=== PATIENT | male | born 1945 | race Caucasian/White ===

== ENCOUNTER 2025-03-25 12:58 | Inpatient (IN) | payer MEDICARE, SELFPAY ==
[2025-03-25] VITALS (13 sets, daily range): BP systolic 93–125; BP diastolic 51–92; PULSE 79–120; RESP 16–28; TEMP 36.1–36.4; O2SAT 90–95; BMI 21.0
[2025-03-25] MEDS: SODIUM CHLORIDE 0.9% 1,000 ML 1000 ML IV (13:34)
--- NOTE | 2025-03-25 13:40 | ED_ITS ---
HPI - Fall General Chief Complaint: Fall Stated Complaint: fell and hurt side x2 days Time Seen by Provider: 03/25/25 13:16 Source: patient and other Mode of arrival: Wheelchair History of Present Illness HPI Narrative: Patient is a an 80-year-old male presenting today after a fall a couple days ago landing on his left side. He has been complaining of some left-sided rib pain. It sounds as though he is not always compliant with his medications but is supposed to take Pradaxa for chronic atrial fibrillation. There are reports per family that he was not feeling very well a couple of days prior maybe even having some low right lower abdominal pain. He is found to be hypotensive with a blood pressure in the 90s. He is hard of hearing he denies any other injury really complaining of pain on the left side of his ribs. May have had a low- grade fever but not documented. Related Data Allergies Allergy/AdvReac Type Severity Reaction Status Date / Time No Known Drug Allergies Allergy Verified 03/25/25 13:03 Exam Initial Vital Signs Initial Vital Signs: Vital Signs Temperature 97.0 F L 03/25/25 13:03 Pulse Rate 79 03/25/25 13:03 Respiratory Rate 18 03/25/25 13:03 Blood Pressure 93/51 L 03/25/25 13:03 Pulse Oximetry 95 03/25/25 13:03 Oxygen Delivery Method Room Air 03/25/25 13:03 GENERAL: Alert week hard of hearing 80-year-old male HEENT: Head atraumatic,EOMI, pupils reactive, face symmetric, moist mucous membranes CARDIOVASCULAR: Regular rate and rhythm without murmurs, rubs or gallops. RESPIRATORY: Decreased breath sounds bilaterally Right rib tenderness no contusion no paradoxical move ABDOMEN: Soft, nontender. Normoactive bowel sounds all 4 quadrants. No guarding or rebound. EXTREMITIES: Normal range of motion, no clubbing or edema. Neurovascularly intact NEUROLOGICAL: Awake alert oriented SKIN: Warm, dry, no laceration, no petechiae, no rashes or lesions. Course Orders Ordered: ED Orders 03/25/25 13:16 EKG-12 Lead Stat RT Consult Eval and Treat NOW 03/25/25 13:30 Blood Culture Stat Comprehensive Metabolic Panel Stat Lactate (Lactic Acid) Stat Lipase Stat PTT Partial Thromboplastin Enmanuel Stat Procalcitonin Stat Prothrombin Time INR Stat 03/25/25 13:45 CT cervical spine wo con Stat CT chest abd pel w con Stat CT head/brain wo con Stat 03/25/25 14:05 Complete Blood Count AUTO DIFF Stat 03/25/25 14:25 Sputum Culture Stat 03/25/25 15:05 Urinalysis and Microscopic Stat 03/25/25 16:28 Consult to Discharge Planning Routine Consult to Occupational Therapy Evaluate & Treat Consult to Physical Therapy Evaluate & Treat 03/25/25 16:46 BMP [Basic Metabolic Panel] Stat 03/25/25 20:30 Basic Metabolic Panel Q4H 03/26/25 00:30 Basic Metabolic Panel Q4H 03/26/25 05:00 Complete Blood Count AUTO DIFF DAILY Comprehensive Metabolic Panel DAILY 03/27/25 05:00 Complete Blood Count AUTO DIFF DAILY Comprehensive Metabolic Panel DAILY 03/28/25 05:00 Complete Blood Count AUTO DIFF DAILY Acetaminophen (Acetaminophen 325 Mg Tablet) 650 mg PO Q6H PRN PRN Reason: Fever/Mild Pain (1-3) Enoxaparin Sodium (Enoxaparin 40 Mg/0.4 Ml Syringe) 40 mg SUBCUT DAILY DENIA Sodium Chloride (Normal Saline 0.9%) 1,000 mls @ 84 mls/hr IV CONT DENIA Last Admin: 03/25/25 16:04 Dose: 84 mls/hr Documented By: RLC Sodium Chloride (Normal Saline 0.9%) 1,000 mls @ 100 mls/hr IV CONT DENIA Piperacillin Sod/Tazobactam (Sod 3.375 gm/ Sodium Chloride) 100 mls @ 25 mls/hr IV Q8H DENIA Lorazepam (Lorazepam 2 Mg/Ml Inj) 0 mg IV CIWAPRN PRN; Protocol PRN Reason: Alcohol Withdrawal Lorazepam (Lorazepam 1 Mg Tablet) 0 mg PO CIWAPRN PRN; Protocol PRN Reason: Alcohol Withdrawal Multivitamins (Multivitamin 1 Tablet) 1 tab PO DAILY DENIA Naloxone HCl (Naloxone 0.4 Mg/Ml Vial) 0.2 mg IV Q2MIN PRN PRN Reason: Opiate Reversal Ondansetron HCl (Ondansetron 4 Mg/2 Ml Inj) 4 mg IV NOW PRN PRN Reason: Nausea And Vomiting Ondansetron HCl (Ondansetron 4 Mg Odt) 4 mg PO NOW PRN PRN Reason: Nausea And Vomiting Discontinued Medications Sodium Chloride (Normal Saline 0.9%) 1,000 mls @ 1,000 mls/hr IV BOLUS ONE Stop: 03/25/25 14:15 Last Infusion: 03/25/25 14:49 Dose: Infused Documented By: MILA(2) Admin: 03/25/25 13:34 Dose: 1,000 mls/hr Documented By: MILA(2) Piperacillin Sod/Tazobactam (Sod 4.5 gm/ Sodium Chloride) 100 mls @ 200 mls/hr IV NOW ONE Stop: 03/25/25 14:50 Last Infusion: 03/25/25 15:51 Dose: Infused Documented By: Admin: 03/25/25 15:11 Dose: 200 mls/hr Documented By: MILA Vital Signs Vital signs: Vital Signs - 8 hr 03/25/25 13:03 03/25/25 14:47 03/25/25 15:01 Temperature 97.0 F L Pulse Rate 79 85 92 H Respiratory Rate 18 20 20 Blood Pressure 93/51 L 115/78 Pulse Oximetry 95 94 92 Oxygen Delivery Method Room Air Room Air 03/25/25 15:02 03/25/25 15:02 03/25/25 15:30 Temperature Pulse Rate 102 H 107 H Respiratory Rate 19 24 Blood Pressure 122/78 Pulse Oximetry 94 92 Oxygen Delivery Method 03/25/25 16:00 03/25/25 16:00 03/25/25 16:28 Temperature Pulse Rate 113 H 109 H Respiratory Rate 17 23 Blood Pressure 125/69 Pulse Oximetry 92 92 Oxygen Delivery Method 03/25/25 16:28 03/25/25 16:30 Temperature Pulse Rate 120 H Respiratory Rate 16 Blood Pressure 125/76 Pulse Oximetry 92 Oxygen Delivery Method MDM - Fall Lab Data 03/25/25 14:05 03/25/25 16:46 Labs: Lab Results 03/25/25 03/25/25 Range/Units 13:30 14:05 WBC 23.4 H (4.5-11.0) X10^3/uL RBC 4.37 L (4.5-5.9) X10^6/uL Hgb 13.3 L (13.5-17.5) g/dL Hct 39.3 L (41-53) % MCV 89.9 (80-100) fL MCH 30.3 (26-34) PG MCHC 33.7 (30-36) % RDW 14.7 (11.6-14.8) % Plt Count 265 (150-400) X10^3/uL Neut % (Auto) 89.5 H (50-75) % Lymph % (Auto) 3.3 L (25-40) % [place] % (Auto) 6.6 (3-14) % Eos % (Auto) 0.0 L (2-4) % Baso % (Auto) 0.6 (0-2) % Neut # (Auto) 94436 H (0720-8807) /uL Lymph # (Auto) 800 L (1740-1494) /uL [place] # (Auto) 1500 H (0-900) /uL Eos # (Auto) 0 (0-450) /uL Baso # (Auto) 100 (0-100) /uL RBC Morphology Normal morphology PT 16.9 H (9.4-12.5) SECONDS INR 1.5 H (0.9-1.3) APTT 51 H (25.1-36.5) SECONDS Sodium 117 L* (137-145) mmol/L Potassium 5.6 H (3.4-5.1) mmol/L Chloride 87 L (98-107) mmol/L Carbon Dioxide 20 L (22-32) mmol/L BUN 20 (9-20) mg/dL Creatinine 0.75 (0.66-1.25) mg/dL Estimated GFR > 60 (>60) mL/min BUN/Creatinine Ratio 26.7 H (6-22) Glucose 107 H (70-99) mg/dL Lactate 2.6 H (0.7-2.1) mmol/L Calcium 9.1 (8.4-10.2) mg/dL Total Bilirubin 1.7 H (0.2-1.3) mg/dL AST 61 H (17-59) IU/L ALT 165 H (<50) IU/L Alkaline Phosphatase 89 (38-126) U/L Total Protein 7.5 (6.3-8.2) g/dL Albumin 4.0 (3.5-5.0) g/dL Globulin 3.5 (1.7-4.1) g/dL Albumin/Globulin Ratio 1.1 (1.0-2.8) Lipase 15 L (23-300) U/L Procalcitonin 5.60 H (<0.5) ng/mL Imaging Data CT scan - head: Radiologist's Impression: PROCEDURE: CT HEAD/BRAIN WO CON INDICATIONS: fall 2 days ago on pradaxa TECHNIQUE: Noncontrast 4.5 mm thick angled axial sections acquired from the foramen magnum to the vertex, with coronal and sagittal reformats. For radiation dose reduction, the following was used: automated exposure control, adjustment of mA and/or kV according to patient size. COMPARISON: None. FINDINGS: Image quality: Diagnostic. CSF spaces: Basal cisterns are patent. No extra-axial fluid collections. The ventricles are symmetric in size and shape. Brain: No intracranial bleeds or mass effect. There is cerebral volume loss, with resultant ventricular and sulcal prominence. There are periventricular and deep white matter chronic small vessel ischemic changes. There is intracranial internal carotid artery atherosclerosis. Skull and face: Calvarium and visualized facial bones appear intact, without suspicious lesions. Sinuses: Visualized sinuses and mastoids are clear. IMPRESSION: No acute intracranial pathology. Dictated by: Carroll Herrera M.D. on 03/25/2025 at 14:32 CT - cervical spine: Radiologist's Impression: PROCEDURE: CT CERVICAL SPINE WO CON INDICATIONS: fall TECHNIQUE: Noncontrast 3 mm thick sections acquired from the skull base to the T4 level. Sagittal and coronal reformats were then constructed. For radiation dose reduction, the following was used: automated exposure control, adjustment of mA and/or kV according to patient size. COMPARISON: None. FINDINGS: Image quality: Excellent. Bones: No fractures or dislocations. Visualized superior ribs are intact. Multilevel degenerative changes of the cervical spine from C2-3 through C6-7 with degenerative disc osteophyte complexes. Soft tissues: Prevertebral soft tissues are normal in thickness. No paravertebral hematomas. The pulmonary apices are better seen on dedicated same-day CT chest. IMPRESSION: No displaced fracture or traumatic subluxation. Dictated by: Carroll Herrera M.D. on 03/25/2025 at 14:45 Approved by: Carroll Herrera M.D. on 03/25/2025 at 14:51 CT scan - abdomen/pelvis: Radiologist's Impression: PROCEDURE: CT CHEST ABD PEL W CON INDICATIONS: fall left rib pain on pradaxa hypotensive TECHNIQUE: After the administration of intravenous contrast, 5 mm thick sections acquired from the lung apices to the symphysis. 5 mm coronal and sagittal reformats were performed, with additional 7 mm MIP reformats through the lungs. For radiation dose reduction, the following was used: automated exposure control, adjustment of mA and/or kV according to patient size. COMPARISON: None. FINDINGS: Image quality: Excellent. CHEST: Lower Neck: No enlarged lymph nodes. Thyroid: No thyroid nodules which require sonographic follow up, per consensus guidelines. Axillae: No enlarged lymph nodes. Chest Wall: Unremarkable. Lungs and Pleura: No pneumothorax. Right moderate and small left pleural effusions. Central lung predominant ground-glass opacities which extends to the bilateral anterior upper lobes. Left lower lobe 9 x 9 cm nodule. . Heart: The heart is prominent in size with biatrial enlargement. Triple-vessel coronary artery calcifications. Thoracic Vessels: The thoracic aorta is normal in size. No central filling defect within the pulmonary trunk or central pulmonary arteries. Mediastinum and Alicia: Enlarged AP window 1.2 x 1 cm node and pre-vascular 1.5 x 1 cm node. Esophagus: No wall thickening. No hiatal hernia. ABDOMEN: Liver: Hyperenhancing exophytic segment 7 6.4 x 5.2 x 8.2 cm mass (coronal series 3, image 60; axial series 2, image 114). Cirrhotic liver morphology. Gallbladder: Circumferential gallbladder wall thickening with mild adjacent edema. Punctate stones within the gallbladder fundus. Biliary ducts: No biliary dilation. Pancreas: No ductal dilation. Spleen: Size is within normal limits. Adrenal Glands: No adrenal nodules. Kidneys and Ureters: No hydronephrosis. No solid mass. No complex renal cystic lesion which requires follow up. Stomach and Bowel: Normal colonic caliber, without significant wall thickening. Normal appendix. Diverticulosis without diverticulitis. Peritoneum: No abnormal intraperitoneal fluid. No free air. Ventral Wall: No significant ventral hernia. Abdominal Nodes: Enlarged right retrocrural 4.4 x 2.3 cm node (05/1112). Vessels: Aorta and inferior vena cava are normal in size. PELVIS: Pelvic Organs: Unremarkable. Bladder: No bladder wall thickening, accounting for underdistention. Pelvic Nodes: No enlarged lymph nodes. Miscellaneous: No inguinal hernias are seen. Bones: No aggressive osseous abnormality. No displaced rib fracture. Findings of DISH. Multilevel degenerative changes in the lumbar spine. No compression deformity. IMPRESSION: 1. 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 2. Enlarged right retrocrural 4.4 cm node versus silvia conglomerate. 3. Left lower lobe 9 mm nodule, which is too small for percutaneous sampling but is suspicious for possible metastatic disease. 4. Multifocal ground-glass opacities throughout both lungs concerning for multifocal pneumonia. 5. Enlarged left pre-vascular and AP window nodes may be reactive in the setting of multifocal pneumonia. 6. Right moderate and small left pleural effusions. 7. No displaced rib fracture or pneumothorax. Dictated by: Carroll Herrera M.D. on 03/25/2025 at 14:34 ECG Data Attestation: I personally reviewed and interpreted this ECG as follows: Prior ECG tracings: not available for review Interpretation: Atrial fibrillation rate 75 no ischemia right bundle-branch block no priors to compare MDM Narrative Medical decision making narrative: MDM CC: Left-sided rib pain Complicating co-morbidities: Atrial fibrillation on Pradaxa Data collected from: Family and patient Medical records reviewed: No records Differential considered: Hemorrhagic shock, sepsis shock, neurogenic shock Exam documented above, pertinent findings include: Weak alert 80-year-old male tender left-sided rib but no contusion or paradoxical movement no evidence of fluid overload slightly decreased breath sounds bilaterally Lab Test results independently reviewed as above. Pertinent findings: Critical results CBC Leukocytosis 23.4 with left shift no anemia Sodium 117, potassium 5.6 Lactate 2.6, procalcitonin 5.6 T bili 1.7 AST 61 ALT 165 Independently reviewed EKG as above Sinus rhythm right bundle-branch block Imaging studies independently reviewed: CT head no intracranial hemorrhage CT neck no fracture CT chest abdomen and pelvis shows a cirrhotic liver with a liver mass 6.4 x 5.2 x 8.2 cm gallbladder swollen with some mild edema CT chest shows multifocal ground-glass opacities consistent with multifocal pneumonia Consultations: [ ] Treatments: Sepsis fluids, Zosyn Re-evaluations: Patient did respond to IV fluids blood pressure improved Discussion: Patient 80-year-old male presenting today with left-sided rib pain after fall. There certainly concern for sepsis he is hypotensive found to have leukocytosis of 23 lactic acid 2.6 significant procalcitonin of 5 point 6. He is given IV fluids sepsis along with IV antibiotics. Unclear at this time where his source of infection is. Due to his trauma fall on anticoagulation patient was imaged with head CT CT chest abdomen and pelvis. Critical Care Time Critical Care Time Critical Care Time: Yes Total Critical Care Time: 45 Attestation: The high probability of a clinically significant, sudden or life threatening deterioration of the [cardiovascular] system(s) required my full and direct attention, intervention and personal management. The aggregate critical care time was [45] minutes. This time is in addition to time spent performing reported procedures but includes the following: [x] Data Review and interpretation [x] Patient assessment and monitoring of vital signs [x] Documentation [x] Medication orders and management Discharge Plan Departure Patient Disposition: Admitted As Inpatient Clinical Impression: Acute hyponatremia, Sepsis, Multifocal pneumonia Admit Date/Time: 03/25/25 16:35 Admit Provider: Gilma Merritt Sepsis Evaluation (ED) Level 2 - SIRS Sepsis SIRS Criteria Present: Respiratory Rate > 20 bpm or PaCO2 < 32 mmHg, WBC < 4k or > 12k or Bands > 10% and Pulse > 90 bpm Level 3 - Organ Dysfunction Sepsis Organ Dysfunction Criteria Present: Lactic Acid > 2 mmol/L Response It is my opinion that this patient have a likely infectious etiology for meeting sepsis criteria: Does Fluid calculation based on 30 mL/kg within 1hr of criteria: ABW used Tissue Perfusion Reassessed within 6 hrs of infusion start time: Yes Date of Tissue Perfusion Reassessment completed: 03/25/25 Time Tissue Perfusion Reassessment completed: 14:47
--- NOTE | 2025-03-25 13:45 | DI.CT.S_ITS ---
PROCEDURE: CT CERVICAL SPINE WO CON INDICATIONS: fall TECHNIQUE: Noncontrast 3 mm thick sections acquired from the skull base to the T4 level. Sagittal and coronal reformats were then constructed. For radiation dose reduction, the following was used: automated exposure control, adjustment of mA and/or kV according to patient size. COMPARISON: None. FINDINGS: Image quality: Excellent. Bones: No fractures or dislocations. Visualized superior ribs are intact. Multilevel degenerative changes of the cervical spine from C2-3 through C6-7 with degenerative disc osteophyte complexes. Soft tissues: Prevertebral soft tissues are normal in thickness. No paravertebral hematomas. The pulmonary apices are better seen on dedicated same-day CT chest. IMPRESSION: No displaced fracture or traumatic subluxation. Dictated by: Carroll Herrera M.D. on 03/25/2025 at 14:45 Approved by: Carroll Herrera M.D. on 03/25/2025 at 14:51
--- NOTE | 2025-03-25 13:45 | DI.CT.S_ITS ---
PROCEDURE: CT CHEST ABD PEL W CON INDICATIONS: fall left rib pain on pradaxa hypotensive TECHNIQUE: After the administration of intravenous contrast, 5 mm thick sections acquired from the lung apices to the symphysis. 5 mm coronal and sagittal reformats were performed, with additional 7 mm MIP reformats through the lungs. For radiation dose reduction, the following was used: automated exposure control, adjustment of mA and/or kV according to patient size. COMPARISON: None. FINDINGS: Image quality: Excellent. CHEST: Lower Neck: No enlarged lymph nodes. Thyroid: No thyroid nodules which require sonographic follow up, per consensus guidelines. Axillae: No enlarged lymph nodes. Chest Wall: Unremarkable. Lungs and Pleura: No pneumothorax. Right moderate and small left pleural effusions. Central lung predominant ground-glass opacities which extends to the bilateral anterior upper lobes. Left lower lobe 9 x 9 cm nodule. . Heart: The heart is prominent in size with biatrial enlargement. Triple-vessel coronary artery calcifications. Thoracic Vessels: The thoracic aorta is normal in size. No central filling defect within the pulmonary trunk or central pulmonary arteries. Mediastinum and Alicia: Enlarged AP window 1.2 x 1 cm node and pre-vascular 1.5 x 1 cm node. Esophagus: No wall thickening. No hiatal hernia. ABDOMEN: Liver: Hyperenhancing exophytic segment 7 6.4 x 5.2 x 8.2 cm mass (coronal series 3, image 60; axial series 2, image 114). Cirrhotic liver morphology. Gallbladder: Circumferential gallbladder wall thickening with mild adjacent edema. Punctate stones within the gallbladder fundus. Biliary ducts: No biliary dilation. Pancreas: No ductal dilation. Spleen: Size is within normal limits. Adrenal Glands: No adrenal nodules. Kidneys and Ureters: No hydronephrosis. No solid mass. No complex renal cystic lesion which requires follow up. Stomach and Bowel: Normal colonic caliber, without significant wall thickening. Normal appendix. Diverticulosis without diverticulitis. Peritoneum: No abnormal intraperitoneal fluid. No free air. Ventral Wall: No significant ventral hernia. Abdominal Nodes: Enlarged right retrocrural 4.4 x 2.3 cm node (05/1112). Vessels: Aorta and inferior vena cava are normal in size. PELVIS: Pelvic Organs: Unremarkable. Bladder: No bladder wall thickening, accounting for underdistention. Pelvic Nodes: No enlarged lymph nodes. Miscellaneous: No inguinal hernias are seen. Bones: No aggressive osseous abnormality. No displaced rib fracture. Findings of DISH. Multilevel degenerative changes in the lumbar spine. No compression deformity. IMPRESSION: 1. 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 2. Enlarged right retrocrural 4.4 cm node versus silvia conglomerate. 3. Left lower lobe 9 mm nodule, which is too small for percutaneous sampling but is suspicious for possible metastatic disease. 4. Multifocal ground-glass opacities throughout both lungs concerning for multifocal pneumonia. 5. Enlarged left pre-vascular and AP window nodes may be reactive in the setting of multifocal pneumonia. 6. Right moderate and small left pleural effusions. 7. No displaced rib fracture or pneumothorax. Dictated by: Carroll Herrera M.D. on 03/25/2025 at 14:34 Approved by: Carroll Herrera M.D. on 03/25/2025 at 14:45
--- NOTE | 2025-03-25 13:45 | DI.CT.S_ITS ---
PROCEDURE: CT HEAD/BRAIN WO CON INDICATIONS: fall 2 days ago on pradaxa TECHNIQUE: Noncontrast 4.5 mm thick angled axial sections acquired from the foramen magnum to the vertex, with coronal and sagittal reformats. For radiation dose reduction, the following was used: automated exposure control, adjustment of mA and/or kV according to patient size. COMPARISON: None. FINDINGS: Image quality: Diagnostic. CSF spaces: Basal cisterns are patent. No extra-axial fluid collections. The ventricles are symmetric in size and shape. Brain: No intracranial bleeds or mass effect. There is cerebral volume loss, with resultant ventricular and sulcal prominence. There are periventricular and deep white matter chronic small vessel ischemic changes. There is intracranial internal carotid artery atherosclerosis. Skull and face: Calvarium and visualized facial bones appear intact, without suspicious lesions. Sinuses: Visualized sinuses and mastoids are clear. IMPRESSION: No acute intracranial pathology. Dictated by: Carroll Herrera M.D. on 03/25/2025 at 14:32 Approved by: Carroll Herrera M.D. on 03/25/2025 at 14:33
--- NOTE | 2025-03-25 13:51 | EKG_ITS ---
[place] [id number] [place] [id number] Test Date: 2025-03-25 Pat Name: Jet Galan Department: [facility] Room: Gender: Male Appointment Clerk: : 1945 Requested By: Order Number: [id number] Reading MD: Wei Chawla MD Measurements Intervals Wisdom Rate: 75 P: [place]: QRS: 94 QRSD: 140 T: 134 QT: 494 QTc: 551 Interpretive Statements Atrial fibrillation with premature ventricular or aberrantly conducted complexes Right bundle branch block NO PRIOR TRACING Electronically Signed On 03-25-2025 16:52:13 PST by Wei Chawla MD
[2025-03-25 13:58] LABS: INR 1.5 (0.9-1.3); Prothrombin Time 16.9 SECONDS (9.4-12.5)
[2025-03-25 14:01] LABS: PTT Partial Thromboplastin Tim 51 SECONDS (25.1-36.5)
[2025-03-25 14:02] LABS: Lactate (Lactic Acid) 2.6 mmol/L (0.7-2.1)
[2025-03-25 14:03] LABS: Alanine Aminotransferase 165 IU/L (<50); Albumin 4.0 g/dL (3.5-5.0); Albumin Globulin Ratio 1.1 (1.0-2.8); Alkaline Phosphatase 89 U/L (38-126); Blood Urea Nitrogen 20 mg/dL (9-20); Calcium 9.1 mg/dL (8.4-10.2); Carbon Dioxide 20 mmol/L (22-32); Chloride 87 mmol/L (98-107); Estimated Glomerular Filt Rate > 60 mL/min (>60); Globulin 3.5 g/dL (1.7-4.1); Glucose 107 mg/dL (70-99); Lipase 15 U/L (23-300); Total Protein 7.5 g/dL (6.3-8.2)
[2025-03-25 14:15] LABS: Hematocrit 39.3 % (41-53); Hemoglobin 13.3 g/dL (13.5-17.5); Lymphocytes Absolute Auto 800 /uL (1100-4500); Mean Corpuscular HGB Conc 33.7 % (30-36); Mean Corpuscular Hemoglobin 30.3 PG (26-34); Mean Corpuscular Volume 89.9 fL (80-100); Platelet Count 265 X10^3/uL (150-400)
[2025-03-25 14:17] LABS: Add Manual Diff / Slide Review SLIDE REVIEW
[2025-03-25 14:19] LABS: HEMOLYSIS 63 (0-50); Potassium 5.6 mmol/L (3.4-5.1)
[2025-03-25 14:20] LABS: Procalcitonin 5.60 ng/mL (<0.5); Sodium 117 mmol/L (137-145)
[2025-03-25 15:03] LABS: RBC Morphology Normal Morphology
[2025-03-25] MEDS: PIPERACILLIN/TAZO 4.5 GM in SODIUM CHLORIDE 0.9% 100 ML IV (15:11)
[2025-03-25 15:21] LABS: Reflexed Lactate in 2 Hours Y
[2025-03-25] MEDS: SODIUM CHLORIDE 0.9% 1,000 ML 84 ML IV (16:04)
[2025-03-25 17:26] LABS: Blood Urea Nitrogen 16 mg/dL (9-20); Calcium 6.8 mg/dL (8.4-10.2); Carbon Dioxide 17 mmol/L (22-32); Chloride 99 mmol/L (98-107); Estimated Glomerular Filt Rate > 60 mL/min (>60); Glucose 92 mg/dL (70-99); HEMOLYSIS 32 (0-50); Lactate 2HR (Lactic Acid Rflx) 1.7 mmol/L (0.7-2.1); Potassium 4.1 mmol/L (3.4-5.1); Sodium 124 mmol/L (137-145)
--- NOTE | 2025-03-25 17:48 | CM.DANOTE ---
DCP Assessment Note: Pt is a 80yo male, resident of [place], is admitted for suspected sepsis and s/p GLF. Pt lives in a house with his caregiver, Maria Victoria. Pt's Primary Care Provider is Dr. Darius Grullon and insurance is Medicare. Reviewed chart and discussed with multidisciplinary team pt's medical status and initial discharge needs. Per ED Provider, pt to be admitted for IV fluids and antibiotics, blood cultures pending. DCP met w/patient at bedside; introduced self and role. Patient was found in bed, alert and oriented, cooperative with assessment. Consented to caregiver, Maria Victoria, to be main historian for patient. Pt confirmed living situation and good support in caregiver. Pt expressed preference in discharge home when cleared. Pt has no history of SNF Rehab or HH. POA/Guardian requests pt DI records when available. Plan: Anticipating discharge home with caregiver to transport when medically cleared, CM team will follow closely for coordination of discharge plans. GEORGINA Kim Discharge Planning/Care Management CM Discharge Assessment Start: 03/25/25 17:46 Freq: Status: Active Protocol: Document 03/25/25 17:46 MW (Rec: 03/25/25 17:48 MW [id number]) Discharge Planning Assessment Assigned Discharge S[facility] [employer] Managing Editor Provider Dr. Darius Grullon Insurance Medicare DPOA/Assigned Maria Victoria Gage Designee Name Contact Information [phone] History Provided By Patient,Family Member,Medical Record Has Patient been No admitted in last 30 days? Prior Living House Arrangements Household Members caregiver Type of Relies on Others transporation used prior to admit Independent with ADL No 's Is patient alert and Yes oriented? Caregiver for No Another Discharge Plan Home Review Status In Process Please Provide Date 03/25/25 Initial DC Assessment Was Performed Next Review Type Continued Stay Review
[2025-03-25] MEDS: SODIUM CHLORIDE 0.9% 1,000 ML 100 ML IV (18:40)
--- NOTE | 2025-03-25 19:08 | P.HP_ITS ---
History of Present Illness History of Present Illness Chief complaint: fell and hurt side x2 days Narrative: 80-year-old male with history of chronic tobacco dependence (greater than 40 pack years), alcohol dependence (1 shot of Kahlua, 4-6 beers in a 12 hour period, and a couple ?shots of wine? daily), chronic dizziness, hypertension. He was seen by his PCP in February of this year and was found to have AFib with RVR. He was initiated on anticoagulation with dabigatran. He was also initiated on metoprolol. At that visit, he and Dr. Gonzales discussed his alcohol use and he reported that he typically gets up between noon and 2:00 p.m., starts drinking beer around 3 or 4:00 p.m., and goes to bed between midnight and 3:[address] Gonzales sent him for blood work and the labs were performed on February 16 which revealed an ALT of 103, PSA of 5.565, normal TSH, sodium of 130, potassium 4.6, and otherwise fairly unremarkable findings. He states he noticed some increased cough with white sputum production about 2 months ago. He states he does have an occasional coughing episode with eating but does not recall any manuel aspiration. He did develop some increased back pain recently and was seen in the walk-in clinic in [place] on March 17 complaining of both right-sided low back pain and dizziness for several days. During that visit he mentioned to the doctor that his symptoms could be related to having drank too much wine. His heart rate was 133, respiratory rate was 36 during that visit. He was noted to be hypertensive and was given IV Toradol at that time. He was referred for x-rays of his back which were done on March 20 and revealed degenerative changes of the lumbar spine. He states after the day he went in for x-rays, he sustained a fall. He reports that occurred about 3 days ago. He is continued to have discomfort. He presented to the emergency department today complaining of left-sided rib pain. He states he did have some right upper quadrant pain several days ago but he states he drank a boost and that pain went away. He was found to be hypotensive as well. He underwent evaluation including EKG, blood cultures, labs, lactate, CT of his cervical spine chest, abdomen pelvis, and head. Labs revealed a white blood cell count of 23.4, INR was mildly elevated at 1.4. Sodium was 117. Bilirubin was 1.7, AST 61, ALT 165. Albumin normal at 4.0. Procalcitonin was elevated at 5.6. Head CT showed no acute intracranial pathology. C-spine CT showed no displaced fracture or traumatic subluxation. CT of the chest abdomen and pelvis revealed no displaced rib fracture or pneumothorax. There was a right moderate and small left pleural effusions. Multifocal ground-glass opacities throughout both lungs concerning for multifocal pneumonia. There is a left lower lobe 9 mm nodule which is too small for sampling but suspicious for possible metastatic disease. There was an enlarged right retrocrural 4.4 cm node versus silvia conglomerate. There was also a cirrhotic liver morphology with an exophytic hyperenhancing mass concerning for primary hepatic malignancy, favoring HCC. Admission was recommended for treatment of sepsis secondary to multifocal pneumonia, and further evaluation of the concerning findings for malignancy. [facility] Social History household members: caregiver Smoking Status: Former smoker alcohol intake: current Comment: Past medical history is as listed above. Additional history of lumbar spinal surgery Family history significant for coronary disease in his mother and father both. Meds Home Medications and Allergies Home Medications ?Medication ?Instructions ?Recorded ?Confirmed ?Type dabigatran etexilate 150 mg capsule 150 mg PO BID 03/1303/25/25 History metoprolol tartrate 50 mg tablet 50 mg PO BID 03/25/25 03/25/25 History omeprazole 20 mg capsule,delayed 20 mg PO DAILY 03/25/25 History release tizanidine 2 mg tablet 2 mg PO 3XD PRN muscle spasm 03/25/25 03/25/25 History Allergies Allergy/AdvReac Type Severity Reaction Status Date / Time No Known Drug Allergies Allergy Verified 03/25/25 13:03 Review of Systems Review of Systems Narrative: All other systems were reviewed negative Exam Vital Signs (past 8 hours): - 03/25/25 13:03 03/25/25 14:47 03/25/25 15:01 Temperature 97.0 F L Pulse Rate 79 85 92 H Respiratory Rate 18 20 20 Blood Pressure 93/51 L 115/78 Pulse Oximetry 95 94 92 Oxygen Delivery Method Room Air Room Air 03/25/25 15:02 03/25/25 15:02 03/25/25 15:30 Temperature Pulse Rate 102 H 107 H Respiratory Rate 19 24 Blood Pressure 122/78 Pulse Oximetry 94 92 Oxygen Delivery Method 03/25/25 16:00 03/25/25 16:00 03/25/25 16:28 Temperature Pulse Rate 113 H 109 H Respiratory Rate 17 23 Blood Pressure 125/69 Pulse Oximetry 92 92 Oxygen Delivery Method 03/25/25 16:28 03/25/25 16:29 03/25/25 16:30 Temperature 97.6 F Pulse Rate 113 H 120 H Respiratory Rate 20 16 Blood Pressure 125/76 118/74 Pulse Oximetry 90 L 92 Oxygen Delivery Method 03/25/25 17:00 03/25/25 17:00 03/25/25 17:30 Temperature Pulse Rate 117 H 115 H Respiratory Rate 27 H 28 H Blood Pressure 118/92 H Pulse Oximetry 93 92 Oxygen Delivery Method 03/25/25 18:00 03/25/25 18:00 Temperature Pulse Rate 104 H Respiratory Rate 26 H Blood Pressure 113/74 Pulse Oximetry 93 Oxygen Delivery Method Oxygen Delivery Method Room Air Narrative Exam Narrative: GEN: Elderly male, Alert and oriented x3, slightly garbled speech, rhonchorous upper airway noises HEENT: Normocephalic, face symmetric, pupils equal round reactive to light, extraocular movements intact, sclerae anicteric, conjunctiva clear, nares patent, oropharynx reveals an intact soft and hard palate with moist mucous membranes, dentition is fair NECK: Supple, no lymphadenopathy, thyroid without enlargement or nodularity, carotids no bruits CHEST: Respiratory excursions symmetric, coarse with diffuse rhonchi bilaterally CV: Irregularly irregular, no murmurs, rubs, gallops, PMI nondisplaced ABD: Soft, nontender, nondistended, bowel sounds present in all 4 quadrants, no organomegaly or masses appreciated EXTR: Warm, well perfused, fingers are mildly cyanotic, otherwise no edema or clubbing SKIN: Warm and dry, without rash NEURO: Alert and oriented x3, grossly intact Objective Labs 03/25/25 14:05 03/25/25 16:46 Labs: Laboratory Results - last 24 hr 03/25/25 03/25/25 03/25/25 13:30 14:05 16:46 WBC 23.4 H RBC 4.37 L Hgb 13.3 L Hct 39.3 L MCV 89.9 MCH 30.3 MCHC 33.7 RDW 14.7 Plt Count 265 Neut % (Auto) 89.5 H Lymph % (Auto) 3.3 L Aiken % (Auto) 6.6 Eos % (Auto) 0.0 L Baso % (Auto) 0.6 Neut # (Auto) 46685 H Lymph # (Auto) 800 L Aiken # (Auto) 1500 H Eos # (Auto) 0 Baso # (Auto) 100 RBC Morphology Normal morphology PT 16.9 H INR 1.5 H APTT 51 H Sodium 117 L* 124 L Potassium 5.6 H 4.1 D Chloride 87 L 99 Carbon Dioxide 20 L 17 L BUN 20 16 Creatinine 0.75 0.57 L Estimated GFR > 60 > 60 BUN/Creatinine Ratio 26.7 H 28.1 H Glucose 107 H 92 Lactate 2.6 H 1.7 Calcium 9.1 6.8 L Total Bilirubin 1.7 H AST 61 H ALT 165 H Alkaline Phosphatase 89 Total Protein 7.5 Albumin 4.0 Globulin 3.5 Albumin/Globulin Ratio 1.1 Lipase 15 L Procalcitonin 5.60 H Assessment & Plan Assessment & Plan narrative: 1. Sepsis Patient presented with leukocytosis, hypotension, tachycardia, tachypnea, and evidence of multifocal pneumonia. Blood cultures were drawn and pending at this time. He received Zosyn in the emergency department and this will be continued. Will follow-up labs in the morning to determine whether his white blood cell count is improving. He also had an elevated procalcitonin. 2. Multifocal pneumonia May be secondary to aspiration versus poor baseline health/nutrition. As noted, he has been placed on Zosyn. Will monitor for response. Sats are stable on room air at this time. 3. Hyponatremia At presentation, his sodium was 117. He had mild hyponatremia at 130 on labs that were drawn last month. His sodium has already increased to 124 after receiving 1 L of IV fluids in the emergency department. Will check q.4 hours labs to ensure he does not correct too quickly. We will continue gentle IV fluid hydration. 4. Recent new diagnosis of atrial fibrillation He was placed on dabigatran by his PCP. Given his alcohol dependence, falls prior to admission, and potential need for biopsy to ascertain the underlying malignancy, I will hold his dabigatran. 5. Alcohol dependence He is at risk for alcohol withdrawal. I have placed him on the withdrawal protocol. He denies any previous history of alcohol withdrawal symptoms. He reports he had 2 beers yesterday and none today and thus far has not had any evidence of alcohol withdrawal. 6. 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 Will send an alpha fetoprotein though I suspect it is a send out. As noted, I will hold the Eliquis in the event he wishes to pursue a biopsy for further diagnosis. He reports that he would like to pursue diagnosis and would certainly pursue treatment if there is a malignancy. 7. Probable cirrhosis CT scan does show evidence of likely cirrhosis of the liver. This would certainly put him at risk for HCC. Code status Full per patient Prophylaxis Chemical prophylaxis held for now. If CBC is stable in the morning, will add Lovenox for prophylaxis Disposition Admit to acute care Time-Based Coding :: [TOTAL MINUTES] spent with patient and on the chart (including review of chart, obtaining history, exam, reviewing outside data, placing orders, documenting exam and treatment plan, and counseling patient) on [DATE]. Quality VTE Deep Vein Thrombosis/Pulmonary Embolism Present on Admission: No
[2025-03-25] MEDS: PIPERACILLIN/TAZO 3.375 GM in SODIUM CHLORIDE 0.9% 100 ML IV (20:25)
[2025-03-25 21:51] LABS: Blood Urea Nitrogen 19 mg/dL (9-20); Calcium 8.7 mg/dL (8.4-10.2); Carbon Dioxide 18 mmol/L (22-32); Chloride 91 mmol/L (98-107); Estimated Glomerular Filt Rate > 60 mL/min (>60); Glucose 93 mg/dL (70-99); HEMOLYSIS 23 (0-50); Potassium 4.6 mmol/L (3.4-5.1); Sodium 121 mmol/L (137-145)
[2025-03-26] VITALS (11 sets, daily range): BP systolic 106–131; BP diastolic 68–85; PULSE 68–136; RESP 15–24; TEMP 36.6–37.3; O2SAT 90–100
[2025-03-26] MEDS: METOPROLOL IR 50 MG TABLET PO ×3 (00:19→20:13)
[2025-03-26] MEDS: PIPERACILLIN/TAZO 3.375 GM in SODIUM CHLORIDE 0.9% 100 ML IV ×3 (03:03→20:15)
[2025-03-26] MEDS: SODIUM CHLORIDE 0.9% 1,000 ML 100 ML IV ×2 (05:10→17:18)
[2025-03-26 06:07] LABS: Add Manual Diff / Slide Review NO; Hematocrit 37.8 % (41-53); Hemoglobin 12.9 g/dL (13.5-17.5); Lymphocytes Absolute Auto 1000 /uL (1100-4500); Mean Corpuscular HGB Conc 34.2 % (30-36); Mean Corpuscular Hemoglobin 30.6 PG (26-34); Mean Corpuscular Volume 89.5 fL (80-100); Platelet Count 247 X10^3/uL (150-400)
[2025-03-26 06:56] LABS: Alanine Aminotransferase 161 IU/L (<50); Albumin 3.1 g/dL (3.5-5.0); Albumin Globulin Ratio 1.1 (1.0-2.8); Alkaline Phosphatase 90 U/L (38-126); Blood Urea Nitrogen 19 mg/dL (9-20); Calcium 8.2 mg/dL (8.4-10.2); Carbon Dioxide 19 mmol/L (22-32); Chloride 94 mmol/L (98-107); Estimated Glomerular Filt Rate > 60 mL/min (>60); Globulin 2.9 g/dL (1.7-4.1); Glucose 81 mg/dL (70-99); HEMOLYSIS < 15 (0-50); Potassium 4.7 mmol/L (3.4-5.1); Sodium 122 mmol/L (137-145); Total Protein 6.0 g/dL (6.3-8.2)
--- NOTE | 2025-03-26 07:19 | P.PN_ITS ---
Subjective Subjective Interval history: 80-year-old male with chronic tobacco dependence greater than 40 pack years, alcohol dependence without history of alcohol withdrawal, chronic dizziness, hypertension who was admitted with sepsis, multifocal pneumonia, hyponatremia, recent new diagnosis of atrial fibrillation, probable cirrhosis, and new diagnosis of hepatic mass with possible enlarged right retrocrural lymph node 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 On admission he was hypotensive with a white blood cell count of 23.4. He was mildly coagulopathic with an INR of 1.5. Initial sodium was 117. Initial LFTs revealed a bilirubin of 1.7, AST of 61, ALT of 165. Procalcitonin was 5.6. He reported he would wish to pursue diagnosis of his liver mass and treatment. Exam Vital Signs (past 8 hours): - 03/26/25 00:00 03/26/25 04:00 03/26/25 07:00 Temperature 98.1 F 98.0 F Pulse Rate 128 H 120 H 120 H Respiratory Rate 24 20 Blood Pressure 111/72 106/69 125/74 Pulse Oximetry 91 95 Oxygen Flow Rate 0 1 Oxygen Delivery Method Nasal Cannula Oxygen Flow Rate 1 Narrative Exam Narrative: GEN: Elderly male, frail and thin appearing, Alert and oriented x 3, NAD HEENT:NC, Face symmetric CHEST: Bilateral rhonchi with weak cough CV: Irregularly irregular, no M/R/G ABD: Soft, mild tenderness palpation of the right upper quadrant/ND, BT present in all 4 quadrants, no organomegaly or masses EXTR: warm, well perfused, no clubbing or edema, persistent digital cyanosis SKIN: warm and dry, no rash NEURO: Alert and oriented x 3, nonfocal Objective Labs 03/26/25 04:29 03/26/25 16:10 Labs: Laboratory Results - last 24 hr 03/25/25 03/25/25 03/25/25 13:30 14:05 16:46 WBC 23.4 H RBC 4.37 L Hgb 13.3 L Hct 39.3 L MCV 89.9 MCH 30.3 MCHC 33.7 RDW 14.7 Plt Count 265 Neut % (Auto) 89.5 H Lymph % (Auto) 3.3 L [place] % (Auto) 6.6 Eos % (Auto) 0.0 L Baso % (Auto) 0.6 Neut # (Auto) 17909 H Lymph # (Auto) 800 L [place] # (Auto) 1500 H Eos # (Auto) 0 Baso # (Auto) 100 RBC Morphology Normal morphology PT 16.9 H INR 1.5 H APTT 51 H Sodium 117 L* 124 L Potassium 5.6 H 4.1 D Chloride 87 L 99 Carbon Dioxide 20 L 17 L BUN 20 16 Creatinine 0.75 0.57 L Estimated GFR > 60 > 60 BUN/Creatinine Ratio 26.7 H 28.1 H Glucose 107 H 92 Lactate 2.6 H 1.7 Calcium 9.1 6.8 L Total Bilirubin 1.7 H AST 61 H ALT 165 H Alkaline Phosphatase 89 Total Protein 7.5 Albumin 4.0 Globulin 3.5 Albumin/Globulin Ratio 1.1 Lipase 15 L Procalcitonin 5.60 H 03/25/25 03/26/25 20:58 04:29 WBC 16.6 H RBC 4.22 L Hgb 12.9 L Hct 37.8 L MCV 89.5 MCH 30.6 MCHC 34.2 RDW 14.9 H Plt Count 247 Neut % (Auto) 84.4 H Lymph % (Auto) 5.9 L [place] % (Auto) 9.4 Eos % (Auto) 0.1 L Baso % (Auto) 0.2 Neut # (Auto) 42834 H Lymph # (Auto) 1000 L [place] # (Auto) 1600 H Eos # (Auto) 0 Baso # (Auto) 0 RBC Morphology PT INR APTT Sodium 121 L 122 L Potassium 4.6 4.7 Chloride 91 L 94 L Carbon Dioxide 18 L 19 L BUN 19 19 Creatinine 0.72 0.70 Estimated GFR > 60 > 60 BUN/Creatinine Ratio 26.4 H 27.1 H Glucose 93 81 Lactate Calcium 8.7 8.2 L Total Bilirubin 1.2 AST 45 ALT 161 H Alkaline Phosphatase 90 Total Protein 6.0 L Albumin 3.1 L Globulin 2.9 Albumin/Globulin Ratio 1.1 Lipase Procalcitonin [facility] Social History household members: caregiver Smoking Status: Former smoker alcohol intake: current Assessment & Plan Assessment & Plan narrative: 1. Sepsis Patient presented with leukocytosis, hypotension, tachycardia, tachypnea, and evidence of multifocal pneumonia. Blood cultures are pending.. Continue Zosyn. White blood cell count is improved from 23.4-16.6. Normotensive today. 2. Multifocal pneumonia May be secondary to aspiration versus poor baseline health/nutrition. Remains on Zosyn. Now requiring 1 L of oxygen. 3. Hyponatremia At presentation, his sodium was 117. He had mild hyponatremia at 130 on labs that were drawn last month. He did rapidly increased to 124 after receiving a L of IV fluids in the emergency department. IV fluids were slowed down and his sodium did decrease to 121 last evening and was up to 122 earlier this morning. We will continue to monitor. 4. Recent new diagnosis of atrial fibrillation He was placed on dabigatran by his PCP. Given his alcohol dependence, falls prior to admission, and potential need for biopsy to ascertain the underlying malignancy, I have held his dabigatran. He is tachycardic this morning, likely secondary to his beta-ольга being held due to his hypotension on admission. Metoprolol was resumed overnight, but has not had a significant impact on his AFib. Therefore, I have added a dose of digoxin. 5. Alcohol dependence He is at risk for alcohol withdrawal. He denies any previous history of alcohol withdrawal symptoms. Continue alcohol withdrawal protocol 6. 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 Alpha fetoprotein was ordered on admission. Dabigatran was held on admission. He reports that he would like to pursue diagnosis and would certainly pursue treatment if there is a malignancy. 7. Probable cirrhosis CT scan does show evidence of likely cirrhosis of the liver. This would certainly put him at risk for HCC. Code status Full per patient Prophylaxis Will initiate Lovenox for DVT prophylaxis Disposition Continue acute care Time-Based Coding :: [TOTAL MINUTES] spent with patient and on the chart (including review of chart, obtaining history, exam, reviewing outside data, placing orders, documenting exam and treatment plan, and counseling patient) on [DATE]. Quality VTE Deep Vein Thrombosis/Pulmonary Embolism Present on Admission: No
[2025-03-26 10:04] LABS: Appearance Urine UA CLEAR; Bilirubin Urine UA NEGATIVE (NEGATIVE); Color Urine UA YELLOW; Glucose Urine UA NEGATIVE (Negative); Ketones Urine UA TRACE (NEGATIVE); Leukocyte Esterase Urine UA NEGATIVE (NEGATIVE); Nitrite Urine UA NEGATIVE (Negative); Occult Blood Urine UA NEGATIVE (Negative); Protein Urine UA TRACE (Negative); Specific Gravity Urine UA 1.010 (1.000-1.035); Urobilinogen Urine UA 0.2 E.U./dL (0.2); pH Urine UA 6.0 (4.5-8.0)
[2025-03-26] MEDS: ENOXAPARIN 40 MG/0.4 ML SYRINGE SUBCUT (10:10)
[2025-03-26] MEDS: MULTIVITAMIN 1 TABLET 1 TAB PO (10:10)
[2025-03-26 10:11] LABS: Culture Indicated Urine Cult Not Indicated
[2025-03-26] MEDS: PANTOPRAZOLE DR 20 MG TABLET PO (10:11)
[2025-03-26] MEDS: SODIUM CHLORIDE 0.9% FLUSH 10 ML IV ×2 (10:11→20:21)
--- NOTE | 2025-03-26 10:54 | DI.ECHO.S_ITS ---
[facility] : : [id number] : [place] : : [id number] : : Phone: [phone] Echocardiogram Report + + :Name: SANDIP JEFF Study Date: 03/27/2025 Height: 71 in : :[facility] ReadingLocation: Weight: 149 lb : : Gender: Male BSA: 1.9 m2 : :: 1945 Age: 80 yrs BP: 139/78 mmHg: :Reason For Study: ATRIAL FIBRILLATION : :Ordering Physician: IRINA, : :ASHWIN Performed By: Jett Schmitt : :Referring: ASHWIN AREVALO : + + Interpretation Summary The left ventricle is normal in size. Left ventricular ejection fraction is estimated to be 45 +/- 5%. There is mild global hypokinesis of the left ventricle. The right ventricle is mildly dilated. Right ventricular systolic function is borderline reduced. The right ventricular systolic pressure is estimated to be at least 57 mmHg based on an estimated right atrial pressure of 8 mm Hg. The left atrium is mildly dilated. The right atrium is moderately dilated. There is mild mitral regurgitation. There is moderate tricuspid regurgitation. The aortic root is normal size. The patient was in atrial fibrillation with heart rates between 82-144 bpm during the exam. Procedure: A two-dimensional transthoracic echocardiogram with color flow and Doppler was performed. The study quality was technically good. There is no prior echocardiogram noted for this patient. The patient was in atrial fibrillation with heart rates between 82-144 bpm during the exam. Left Ventricle: The left ventricle is normal in size. There is normal left ventricular wall thickness. There is no ventricular septal defect visualized. Left ventricular ejection fraction is estimated to be 45 +/- 5%. There is mild global hypokinesis of the left ventricle. Diastolic function could not be accurately assessed due to atrial fibrillation. Right Ventricle: The right ventricle is mildly dilated. Right ventricular systolic function is borderline reduced. Atria: The left atrium is mildly dilated. The right atrium is moderately dilated. There is no Doppler evidence for an atrial septal defect. Mitral Valve: The mitral valve leaflets appear normal. There is no evidence of stenosis, fluttering, or prolapse. There is mild mitral regurgitation. Aortic Valve: The aortic valve is trileaflet. The aortic valve is mildly calcified. No aortic regurgitation is present. Tricuspid Valve: The tricuspid valve is normal in structure but is abnormal in function. There is moderate tricuspid regurgitation. The right ventricular systolic pressure is estimated to be at least 57 mmHg based on an estimated right atrial pressure of 8 mm Hg. Pulmonic Valve: The pulmonic valve is not well visualized. There is no pulmonic valvular regurgitation. Great Vessels: The aortic root is normal size. The ascending aorta could not be visualized. The pulmonary is not well visualized. The IVC is of normal diameter and collapses less than 50% with a sniff. This suggests a right atrial pressure of 8 mm Hg. Pericardium/ Pleura There is no pericardial effusion. There is a small left- sided pleural effusion. MMode/2D Measurements & Calculations LVIDd: 5.0 cm LVOT diam: 2.1 cm LVIDs: 4.5 cm Ao root diam: 3.5 cm FS: 11.3 % EPSS: 1.1 cm IVSd: 0.98 cm LVPWd: 0.77 cm LV andrade. diameter/BSA (cm/m^2): 2.7 LV sys. diameter/BSA (cm/m^2): 2.4 LA A2 area: 22.1 cm2 RA long axis: 6.1 cm LA A4 area: 28.0 cm2 RA area: 25.3 cm2 LA length (vol): 7.7 cm RA vol: 88.5 ml LA vol: 68.6 ml RA : 47.5 ml/m2 LA vol index: 36.9 ml/m2 IVC diam: 1.7 cm RVD1 (basal): 4.1 cm RVD2 (mid): 3.0 cm TAPSE: 1.8 cm Doppler Measurements & Calculations Ao V2 max: 117.9 cm/sec LVOT Max Medardo: 83.9 cm/sec Ao V2 mean: 76.5 cm/sec LV V1 max P.8 mmHg Ao max P.6 mmHg LV V1 VTI: 13.5 cm Ao mean P.7 mmHg NOVA(I,D): 2.5 cm2 Ao V2 VTI: 18.9 cm NOVA(V,D): 2.4 cm2 sev ratio: 0.72 NOVA indexed to BSA (cm^2/m^2): 1.3 MV E max medardo: 113.8 cm/sec TR max medardo: 349.4 cm/sec MV A max medardo: 33.2 cm/sec TR max P.8 mmHg MV E/A: 3.4 Med Peak E' Medardo: 6.6 cm/sec E/E' med: 17.3 Lat Peak E' Medardo: 7.5 cm/sec E/E' lat: 15.1 E/e' average: 16.2 MV dec time: 0.14 sec SV(LVOT): 46.5 ml Reading Physician:02:28 PM
--- NOTE | 2025-03-26 11:14 | PT-IP ANOTE ---
PT evaluation on hold secondary to tachycardia > 120 supine after communicating with RN. Will continue to follow as appropriate.
[2025-03-26] MEDS: DIGOXIN 500 MCG/2 ML AMPUL 250 MCG IV ×2 (11:22→19:39)
[2025-03-26 13:06] LABS: Magnesium 1.9 mg/dL (1.6-2.3)
[2025-03-26] MEDS: ACETAMINOPHEN 325 MG TABLET 650 MG PO (14:00)
[2025-03-26 16:43] LABS: Blood Urea Nitrogen 19 mg/dL (9-20); Calcium 8.3 mg/dL (8.4-10.2); Carbon Dioxide 18 mmol/L (22-32); Chloride 97 mmol/L (98-107); Estimated Glomerular Filt Rate > 60 mL/min (>60); Glucose 111 mg/dL (70-99); HEMOLYSIS < 15 (0-50); Potassium 4.4 mmol/L (3.4-5.1); Sodium 124 mmol/L (137-145)
[2025-03-27] VITALS (11 sets, daily range): BP systolic 102–150; BP diastolic 68–89; PULSE 57–137; RESP 15–17; TEMP 36.2–37.6; O2SAT 91–98
[2025-03-27] MEDS: PIPERACILLIN/TAZO 3.375 GM in SODIUM CHLORIDE 0.9% 100 ML IV ×3 (03:15→20:45)
[2025-03-27] MEDS: METOPROLOL TARTRATE 5 MG/5 ML INJ IV ×2 (04:53→20:51)
[2025-03-27 05:46] LABS: Add Manual Diff / Slide Review NO; Hematocrit 38.5 % (41-53); Hemoglobin 12.9 g/dL (13.5-17.5); Lymphocytes Absolute Auto 800 /uL (1100-4500); Mean Corpuscular HGB Conc 33.4 % (30-36); Mean Corpuscular Hemoglobin 30.1 PG (26-34); Mean Corpuscular Volume 90.2 fL (80-100); Platelet Count 304 X10^3/uL (150-400)
[2025-03-27 05:58] LABS: Alanine Aminotransferase 225 IU/L (<50); Albumin 3.3 g/dL (3.5-5.0); Albumin Globulin Ratio 1.0 (1.0-2.8); Alkaline Phosphatase 89 U/L (38-126); Blood Urea Nitrogen 16 mg/dL (9-20); Calcium 8.3 mg/dL (8.4-10.2); Carbon Dioxide 19 mmol/L (22-32); Chloride 98 mmol/L (98-107); Estimated Glomerular Filt Rate > 60 mL/min (>60); Globulin 3.4 g/dL (1.7-4.1); Glucose 112 mg/dL (70-99); HEMOLYSIS < 15 (0-50); Potassium 4.2 mmol/L (3.4-5.1); Sodium 126 mmol/L (137-145); Total Protein 6.7 g/dL (6.3-8.2)
--- NOTE | 2025-03-27 07:51 | PM.PN.1 ---
Subjective Subjective Interval history: Summary: 80-year-old male with chronic tobacco dependence greater than 40 pack years, alcohol dependence without history of alcohol withdrawal, chronic dizziness, hypertension who was admitted with sepsis, multifocal pneumonia, hyponatremia, recent new diagnosis of atrial fibrillation, probable cirrhosis, and new diagnosis of hepatic mass with possible enlarged right retrocrural lymph node 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 On admission he was hypotensive with a white blood cell count of 23.4. He was mildly coagulopathic with an INR of 1.5. Initial sodium was 117. Initial LFTs revealed a bilirubin of 1.7, AST of 61, ALT of 165. Procalcitonin was 5.6. He reported he would wish to pursue diagnosis of his liver mass and treatment. S: He was hard of hearing, has bilateral shoulder pain denies this near. He lives in [place] with a caregiver. He drinks about 4-5 beers a day. He denies dyspnea, cough, or abdominal pain. O: T 98.5?, BP 136/89, pulse 57, respiration 15, SpO2 91% 1 L. Patient was frail, somewhat shaky. Denies hallucinations. Lungs are clear, normal effort. Heart is irregular Abdomen is soft, nontender No leg edema. Can move all extremities. Echo pending: Head CT: No acute intracranial pathology. Chest, abdomen, pelvis CT: 1. 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 2. Enlarged right retrocrural 4.4 cm node versus silvia conglomerate. 3. Left lower lobe 9 mm nodule, which is too small for percutaneous sampling but is suspicious for possible metastatic disease. 4. Multifocal ground-glass opacities throughout both lungs concerning for multifocal pneumonia. 5. Enlarged left pre-vascular and AP window nodes may be reactive in the setting of multifocal pneumonia. 6. Right moderate and small left pleural effusions. 7. No displaced rib fracture or pneumothorax. Cervical spine CT: No displaced fracture or traumatic subluxation. A/P: 1. Sepsis, improved. Patient presented with leukocytosis, hypotension, tachycardia, tachypnea, and evidence of multifocal pneumonia. Blood cultures are pending.. Continue Zosyn. White blood cell count is improved from 23.4-16.6. Normotensive today. 2. Multifocal pneumonia, active. May be secondary to aspiration versus poor baseline health/nutrition. Remains on Zosyn. Now requiring 1 L of oxygen. 3. Hyponatremia, improving. This is likely solid deficiency. At presentation, his sodium was 117. He had mild hyponatremia at 130 on labs that were drawn last month. He did rapidly increased to 124 after receiving a L of IV fluids in the emergency department. IV fluids were slowed down and his sodium did decrease to 121 last evening and was up to 122 earlier this morning. We will continue to monitor. 4. Recent new diagnosis of atrial fibrillation, active and stable. He was placed on dabigatran by his PCP. Given his alcohol dependence, falls prior to admission, and potential need for biopsy to ascertain the underlying malignancy, I have held his dabigatran. He is tachycardic this morning, likely secondary to his beta-ольга being held due to his hypotension on admission. Metoprolol was resumed overnight, but has not had a significant impact on his AFib. Therefore, I have added a dose of digoxin. 5. Alcohol dependence, active. He is at risk for alcohol withdrawal. He denies any previous history of alcohol withdrawal symptoms. Continue alcohol withdrawal protocol 6. 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 Alpha fetoprotein was ordered on admission. Dabigatran was held on admission. He reports that he would like to pursue diagnosis and would certainly pursue treatment if there is a malignancy. 7. Cirrhosis, active. CT scan does show evidence of likely cirrhosis of the liver. This would certainly put him at risk for HCC. PLAN: -[facility] protocol -continue antibiotics and follow cultures -wean O2 as able -physical therapy -monitor sodium, saline at 100 per hour. Anticipate at least 2 MN in the hospital, supports inpatient status. Code status Full per patient Exam Vital Signs (past 8 hours): - 03/27/25 02:00 03/27/25 03:43 03/27/25 04:58 Temperature 99.7 F H 98.4 F Pulse Rate 99 H 134 H Respiratory Rate 17 17 Blood Pressure 137/79 146/80 H 140/82 Pulse Oximetry 94 94 Oxygen Flow Rate 2 1.5 03/27/25 05:31 03/27/25 06:00 Temperature Pulse Rate 101 H Respiratory Rate Blood Pressure 136/78 139/78 Pulse Oximetry Oxygen Flow Rate Oxygen Delivery Method Nasal Cannula Oxygen Flow Rate 1.5 Objective Labs 03/27/25 05:25 03/27/25 05:25 Labs: Laboratory Results - last 24 hr 03/25/25 03/26/25 03/26/25 15:05 04:29 16:10 WBC RBC Hgb Hct MCV MCH MCHC RDW Plt Count Neut % (Auto) Lymph % (Auto) [place] % (Auto) Eos % (Auto) Baso % (Auto) Neut # (Auto) Lymph # (Auto) [place] # (Auto) Eos # (Auto) Baso # (Auto) Sodium 124 L Potassium 4.4 Chloride 97 L Carbon Dioxide 18 L BUN 19 Creatinine 0.73 Estimated GFR > 60 BUN/Creatinine Ratio 26.0 H Glucose 111 H Calcium 8.3 L Magnesium 1.9 Total Bilirubin AST ALT Alkaline Phosphatase Total Protein Albumin Globulin Albumin/Globulin Ratio Urine Color Yellow Urine Appearance Clear Urine pH 6.0 Ur Specific [place] 1.010 Urine Protein Trace H Urine Glucose (UA) Negative Urine Ketones Trace H Urine Occult Blood Negative Urine Nitrate Negative Urine Bilirubin Negative Urine Urobilinogen 0.2 Ur Leukocyte Esterase Negative Urine RBC None seen Urine WBC 0-1/hpf Ur Squamous Epith Cells 0-1 /hpf Urine Bacteria None seen Ur Culture Indicated? Cult not indicated Vol Urine Centrifuged 10ml (spun) 03/27/25 05:25 WBC 16.7 H RBC 4.27 L Hgb 12.9 L Hct 38.5 L MCV 90.2 MCH 30.1 MCHC 33.4 RDW 15.1 H Plt Count 304 Neut % (Auto) 86.6 H Lymph % (Auto) 4.8 L [place] % (Auto) 8.2 Eos % (Auto) 0.1 L Baso % (Auto) 0.3 Neut # (Auto) 43098 H Lymph # (Auto) 800 L [place] # (Auto) 1400 H Eos # (Auto) 0 Baso # (Auto) 0 Sodium 126 L Potassium 4.2 Chloride 98 Carbon Dioxide 19 L BUN 16 Creatinine 0.69 Estimated GFR > 60 BUN/Creatinine Ratio 23.2 H Glucose 112 H Calcium 8.3 L Magnesium Total Bilirubin 1.1 AST 50 ALT 225 H Alkaline Phosphatase 89 Total Protein 6.7 Albumin 3.3 L Globulin 3.4 Albumin/Globulin Ratio 1.0 Urine Color Urine Appearance Urine pH Ur Specific [place] Urine Protein Urine Glucose (UA) Urine Ketones Urine Occult Blood Urine Nitrate Urine Bilirubin Urine Urobilinogen Ur Leukocyte Esterase Urine RBC Urine WBC Ur Squamous Epith Cells Urine Bacteria Ur Culture Indicated? Vol Urine Centrifuged PFSH Social History household members: caregiver Smoking Status: Former smoker alcohol intake: current Assessment & Plan Time-Based Coding :: [TOTAL MINUTES] spent with patient and on the chart (including review of chart, obtaining history, exam, reviewing outside data, placing orders, documenting exam and treatment plan, and counseling patient) on [DATE]. Quality VTE Deep Vein Thrombosis/Pulmonary Embolism Present on Admission: No
[2025-03-27] MEDS: ENOXAPARIN 40 MG/0.4 ML SYRINGE SUBCUT (08:35)
[2025-03-27] MEDS: PANTOPRAZOLE DR 20 MG TABLET PO (08:35)
[2025-03-27] MEDS: MULTIVITAMIN 1 TABLET 1 TAB PO (08:35)
[2025-03-27] MEDS: METOPROLOL IR 50 MG TABLET PO (08:35)
[2025-03-27] MEDS: SODIUM CHLORIDE 0.9% FLUSH 10 ML IV ×2 (08:36→20:56)
--- NOTE | 2025-03-27 08:45 | PT-IP ANOTE ---
PT evaluation not appropriate secondary to elevated BP in 110s-140s in supine. Will continue to follow as able.
[2025-03-27] MEDS: METOPROLOL IR 25 MG TABLET PO (09:57)
[2025-03-27] MEDS: DIGOXIN 0.125 MG TABLET PO (09:57)
[2025-03-27] MEDS: SODIUM CHLORIDE 0.9% 1,000 ML 100 ML IV (10:57)
--- NOTE | 2025-03-27 12:41 | OT.IPNOTE ---
OT consult received and reviewed. Pt with tachycardia while supine >120, on hold for therapies today. Will re-attempt tomorrow.
[2025-03-27 15:25] LABS: Blood Urea Nitrogen 14 mg/dL (9-20); Calcium 8.5 mg/dL (8.4-10.2); Carbon Dioxide 21 mmol/L (22-32); Chloride 98 mmol/L (98-107); Estimated Glomerular Filt Rate > 60 mL/min (>60); Glucose 107 mg/dL (70-99); HEMOLYSIS < 15 (0-50); Potassium 4.2 mmol/L (3.4-5.1); Sodium 128 mmol/L (137-145)
[2025-03-27 21:48] LABS: Blood Urea Nitrogen 15 mg/dL (9-20); Calcium 8.4 mg/dL (8.4-10.2); Carbon Dioxide 18 mmol/L (22-32); Chloride 101 mmol/L (98-107); Estimated Glomerular Filt Rate > 60 mL/min (>60); Glucose 104 mg/dL (70-99); HEMOLYSIS < 15 (0-50); Potassium 4.2 mmol/L (3.4-5.1); Sodium 127 mmol/L (137-145)
[2025-03-28] VITALS (7 sets, daily range): BP systolic 107–157; BP diastolic 65–95; PULSE 61–132; RESP 16–22; TEMP 36–37.1; O2SAT 92–98
[2025-03-28] MEDS: PIPERACILLIN/TAZO 3.375 GM in SODIUM CHLORIDE 0.9% 100 ML IV ×3 (03:18→20:47)
[2025-03-28] MEDS: METOPROLOL TARTRATE 5 MG/5 ML INJ IV (04:00)
[2025-03-28] MEDS: SODIUM CHLORIDE 0.9% 1,000 ML 100 ML IV (05:05)
--- NOTE | 2025-03-28 05:07 | PC.NURSE ---
rn shift mgr: Patient is alert to self & place, patient is fatigued and drowsy. Cont tele in place showing afib and tachycardia in 120s-130s at rest, 5mg IV Metoprolol given x2. Patient unable to take bedtime PO Metoprolol d/t drowsiness. Patient is impulsive and attempts to get OOB w/o calling, very weak & unsteady. Peeing small amounts, bladder scan showed retention. Order to straight cath per MD Miles. IVF & IV abx infusing as ordered. Call-light in reach, fall precautions in place.
[2025-03-28 05:47] LABS: Add Manual Diff / Slide Review NO; Hematocrit 35.9 % (41-53); Hemoglobin 12.0 g/dL (13.5-17.5); Lymphocytes Absolute Auto 1000 /uL (1100-4500); Mean Corpuscular HGB Conc 33.4 % (30-36); Mean Corpuscular Hemoglobin 30.1 PG (26-34); Mean Corpuscular Volume 90.3 fL (80-100); Platelet Count 312 X10^3/uL (150-400)
--- NOTE | 2025-03-28 08:04 | P.PN_ITS ---
Subjective Subjective Interval history: Summary: 80-year-old male with chronic tobacco dependence greater than 40 pack years, alcohol dependence without history of alcohol withdrawal, chronic dizziness, hypertension who was admitted with sepsis, multifocal pneumonia, hyponatremia, recent new diagnosis of atrial fibrillation, probable cirrhosis, and new diagnosis of hepatic mass with possible enlarged right retrocrural lymph node 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 On admission he was hypotensive with a white blood cell count of 23.4. He was mildly coagulopathic with an INR of 1.5. Initial sodium was 117. Initial LFTs revealed a bilirubin of 1.7, AST of 61, ALT of 165. Procalcitonin was 5.6. He reported he would wish to pursue diagnosis of his liver mass and treatment. Overnight events: He was getting quite agitated at the end of the day on March 27 was given 1 dose of oral Seroquel. He apparently was somnolent and call most of the night. He remains somnolent this morning but it was arousable. IVF stopped. S: Somnolent. NAD. Not talking much. O: T 97.1, BP 135/92, HR 114, RR 18, SpO2 94% 2 L. Patient is frail, somewhat shaky. Somnolent, but arousable. Lungs are clear, normal effort. Heart is irregular Abdomen is soft, non-tender No leg edema. Na 129 (117 on 03/25). Echo: The left ventricle is normal in size. Left ventricular ejection fraction is estimated to be 45 +/- 5%. There is mild global hypokinesis of the left ventricle. The right ventricle is mildly dilated. Right ventricular systolic function is borderline reduced. The right ventricular systolic pressure is estimated to be at least 57 mmHg based on an estimated right atrial pressure of 8 mm Hg. The left atrium is mildly dilated. The right atrium is moderately dilated. There is mild mitral regurgitation. There is moderate tricuspid regurgitation. The aortic root is normal size. The patient was in atrial fibrillation with heart rates between 82-144 bpm during the exam. Head CT: No acute intracranial pathology. Chest, abdomen, pelvis CT: 1. 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 2. Enlarged right retrocrural 4.4 cm node versus silvia conglomerate. 3. Left lower lobe 9 mm nodule, which is too small for percutaneous sampling but is suspicious for possible metastatic disease. 4. Multifocal ground-glass opacities throughout both lungs concerning for multifocal pneumonia. 5. Enlarged left pre-vascular and AP window nodes may be reactive in the setting of multifocal pneumonia. 6. Right moderate and small left pleural effusions. 7. No displaced rib fracture or pneumothorax. Cervical spine CT: No displaced fracture or traumatic subluxation. A/P: 1. Sepsis, improved. Patient presented with leukocytosis, hypotension, tachycardia, tachypnea, and evidence of multifocal pneumonia. Blood cultures are pending.. Continue Zosyn. White blood cell count is improved from 23.4-16.6. Normotensive today. 2. Multifocal pneumonia, active. May be secondary to aspiration versus poor baseline health/nutrition. Remains on Zosyn. Now requiring 1 L of oxygen. 3. Hyponatremia, improving. This is likely solute deficiency. 4. New diagnosis of atrial fibrillation wtih RVR, active and stable. He was placed on dabigatran by his PCP. Given his alcohol dependence, falls prior to admission, and potential need for biopsy to ascertain the underlying malignancy, have held his dabigatran. 5. Alcohol dependence with withdrawal, active. He is at risk for alcohol withdrawal. He denies any previous history of alcohol withdrawal symptoms. Continue alcohol withdrawal protocol 6. 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 Alpha fetoprotein was ordered on admission. Dabigatran was held on admission. He reports that he would like to pursue diagnosis and would certainly pursue treatment if there is a malignancy. 7. Cirrhosis, active. CT scan does show evidence of likely cirrhosis of the liver. This would certainly put him at risk for HCC. 8. Metabolic encephalopathy, multifactorial but largely related to alcohol withdrawal. PLAN: -CIWA protocol, Hodl all meds this AM and let clear. -continue antibiotics and follow cultures -wean O2 as able -physical therapy -monitor sodium, saline at 100 per hour. -monitor mental status. He needs at least 2 more nights of care in the hospital given alcohol withdrawal and ammonia. Exam Vital Signs (past 8 hours): - 03/28/25 02:58 03/28/25 06:00 Temperature 97.2 F L 97.1 F L Pulse Rate 61 114 H Respiratory Rate 20 18 Blood Pressure 130/70 135/92 H Pulse Oximetry 98 94 Oxygen Flow Rate 2 2 Oxygen Delivery Method Nasal Cannula Oxygen Flow Rate 2 Objective Labs 03/28/25 05:23 03/28/25 05:53 Labs: Laboratory Results - last 24 hr 03/27/25 03/27/25 03/28/25 15:05 21:12 05:23 WBC 15.7 H RBC 3.97 L Hgb 12.0 L Hct 35.9 L MCV 90.3 MCH 30.1 MCHC 33.4 RDW 14.5 Plt Count 312 Neut % (Auto) 81.6 H Lymph % (Auto) 6.3 L [place] % (Auto) 11.0 Eos % (Auto) 0.6 L Baso % (Auto) 0.5 Neut # (Auto) 94953 H Lymph # (Auto) 1000 L [place] # (Auto) 1700 H Eos # (Auto) 100 Baso # (Auto) 100 Sodium 128 L 127 L Potassium 4.2 4.2 Chloride 98 101 Carbon Dioxide 21 L 18 L BUN 14 15 Creatinine 0.71 0.63 L Estimated GFR > 60 > 60 BUN/Creatinine Ratio 19.7 23.8 H Glucose 107 H 104 H Calcium 8.5 8.4 PFSH Social History household members: caregiver Smoking Status: Former smoker alcohol intake: current Assessment & Plan Time-Based Coding :: [TOTAL MINUTES] spent with patient and on the chart (including review of chart, obtaining history, exam, reviewing outside data, placing orders, documenting exam and treatment plan, and counseling patient) on [DATE]. Quality VTE Deep Vein Thrombosis/Pulmonary Embolism Present on Admission: No
[2025-03-28 08:10] LABS: Alanine Aminotransferase 195 IU/L (<50); Albumin 2.5 g/dL (3.5-5.0); Albumin Globulin Ratio 0.9 (1.0-2.8); Alkaline Phosphatase 81 U/L (38-126); Blood Urea Nitrogen 13 mg/dL (9-20); Calcium 7.8 mg/dL (8.4-10.2); Carbon Dioxide 17 mmol/L (22-32); Chloride 104 mmol/L (98-107); Estimated Glomerular Filt Rate > 60 mL/min (>60); Globulin 2.7 g/dL (1.7-4.1); Glucose 101 mg/dL (70-99); HEMOLYSIS 24 (0-50); Potassium 4.2 mmol/L (3.4-5.1); Sodium 129 mmol/L (137-145); Total Protein 5.2 g/dL (6.3-8.2)
--- NOTE | 2025-03-28 08:42 | PT-IP ANOTE ---
PT evaluation not appropriate at this time secondary to elevated HR through ETOH withdraw. PT discharging order and can be re-ordered once medically stable.
--- NOTE | 2025-03-28 08:42 | OT.IPNOTE ---
Per nursing still not medically appropriate for OT eval due to high HR , therefore discharge OT eval orders.
[2025-03-28] MEDS: ENOXAPARIN 40 MG/0.4 ML SYRINGE SUBCUT (10:48)
[2025-03-28] MEDS: SODIUM CHLORIDE 0.9% FLUSH 10 ML IV ×2 (10:49→20:51)
--- NOTE | 2025-03-28 11:16 | DIET.CONS ---
Dietary Consultation Note Admission Date: 03/25/2025 16:35 Assessment: 80 y M admitted for sepsis/pneumonia. Dietitian screened for MNA score. Pt sleeping at attempted visit this morning. Pt with hx of alcohol dependence. CIWA 5 this morning. Ht: 180.34 cm Wt: 68 kg BMI: 21.0 UBW: no weight hx Last BM: 03/24/25 (03/25/25 18:16) MNA: 9 Eulogio Score: 15 Diet: 03/25/25 Dinner Heart Healthy Diet Diet Modifications: Labs: RBC 3.97 X10^6/uL (4.5-5.9) L 03/28/25 05:23 Hgb 12.0 g/dL (13.5-17.5) L 03/28/25 05:23 Hct 35.9 % (41-53) L 03/28/25 05:23 Creatinine 0.56 mg/dL (0.66-1.25) L 03/28/25 05:53 Lactate 1.7 mmol/L (0.7-2.1) 03/25/25 16:46 Nutrition Diagnosis: Inadequate oral intakes r/t excessive alcohol intake aeb hx of alcohol dependence Interventions: Ensure with meals EER: 2000 kcals (30 kcals/kg) 80 g protein (1.2 g/kg per sepsis) Monitoring/Evaluations: PO intakes, ONS tolerance Electronically Signed by: Windy Varghese 03/28/25 11:16 Clinical Dietitian [address] [id number]
--- NOTE | 2025-03-28 13:48 | CM.DPNOTE ---
DCP Continued: Reviewed EMR and team rounds for pt?s medical status. Per hospitalist, pt will still require a couple of more days of monitoring sodium, ammonia levels as well as CIWA scale. Plan is for IV antibotics, weaning O2 and monitoring pt mentation. Per hospitalist, pt somnolent today and when appropriate, would benefit from PT/OT evaluation. Per PT/OT, orders have been discharged and will need to be re-ordered when pt heart rate and CIWA scores more appropriate for evaluation. CM team following recommendations with anticipation of plans for home health vs. SNF when cleared. Plan: Anticipating discharge home with home health vs. SNF when medically cleared, CM Team will continue to follow for coordination of discharge plans. GEORGINA Kim
[2025-03-28] MEDS: LIDOCAINE JELLY 2% 5 ML 1 APPLIC TOP (15:00)
--- NOTE | 2025-03-28 16:11 | DI.RAD.S_ITS ---
PROCEDURE: XR CHEST 1V INDICATIONS: cough TECHNIQUE: One view of the chest was acquired. COMPARISON: None. FINDINGS: Surgical changes and devices: None. Lungs and pleura: Patchy opacities in the lungs bilaterally most severe in the left upper lobe. Minimal bilateral effusions. Mediastinum: Mediastinal contours appear normal. Heart size is enlarged. Bones and chest wall: No suspicious bony lesions. Overlying soft tissues appear unremarkable. IMPRESSION: Patchy opacities suggestive of pneumonia. Underlying areas of edema cannot be excluded. Minimal bilateral effusions. Dictated by: Malika Jennings M.D. on 03/28/2025 at 16:49 Approved by: Malika Jennings M.D. on 03/28/2025 at 16:50
[2025-03-28] MEDS: FUROSEMIDE 20 MG/2 ML VIAL IV (18:00)
[2025-03-28] MEDS: METOPROLOL IR 25 MG TABLET 75 MG PO ×2 (18:00→20:50)
[2025-03-28] MEDS: ACETAMINOPHEN 325 MG TABLET 650 MG PO (20:50)
[2025-03-29] VITALS (8 sets, daily range): BP systolic 127–146; BP diastolic 77–96; PULSE 108–129; RESP 16–20; TEMP 36.1–37; O2SAT 93–98
[2025-03-29] MEDS: METOPROLOL TARTRATE 5 MG/5 ML INJ IV (01:20)
[2025-03-29] MEDS: PIPERACILLIN/TAZO 3.375 GM in SODIUM CHLORIDE 0.9% 100 ML IV ×3 (03:19→20:11)
[2025-03-29 06:04] LABS: Hematocrit 38.0 % (41-53); Hemoglobin 12.8 g/dL (13.5-17.5); Mean Corpuscular HGB Conc 33.8 % (30-36); Mean Corpuscular Hemoglobin 30.4 PG (26-34); Mean Corpuscular Volume 90.1 fL (80-100); Platelet Count 343 X10^3/uL (150-400)
[2025-03-29 06:15] LABS: Alanine Aminotransferase 214 IU/L (<50); Albumin 3.2 g/dL (3.5-5.0); Albumin Globulin Ratio 1.0 (1.0-2.8); Alkaline Phosphatase 83 U/L (38-126); Blood Urea Nitrogen 16 mg/dL (9-20); Calcium 8.4 mg/dL (8.4-10.2); Carbon Dioxide 20 mmol/L (22-32); Chloride 103 mmol/L (98-107); Estimated Glomerular Filt Rate > 60 mL/min (>60); Globulin 3.2 g/dL (1.7-4.1); Glucose 87 mg/dL (70-99); HEMOLYSIS < 15 (0-50); Potassium 3.7 mmol/L (3.4-5.1); Sodium 133 mmol/L (137-145); Total Protein 6.4 g/dL (6.3-8.2)
--- NOTE | 2025-03-29 07:42 | P.PN_ITS ---
Subjective Subjective Date Patient Seen: 03/29/25 Interval history: 80-year-old male with chronic tobacco dependence greater than 40 pack years, alcohol dependence without history of alcohol withdrawal, chronic dizziness, hypertension who was admitted with sepsis, multifocal pneumonia, hyponatremia, recent new diagnosis of atrial fibrillation, probable cirrhosis, and new diagnosis of hepatic mass with possible enlarged right retrocrural lymph node 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 On admission he was hypotensive with a white blood cell count of 23.4. He was mildly coagulopathic with an INR of 1.5. Initial sodium was 117. Initial LFTs revealed a bilirubin of 1.7, AST of 61, ALT of 165. Procalcitonin was 5.6. He reported he would wish to pursue diagnosis of his liver mass and treatment. 03/28: He was getting quite agitated at the end of the day on March 27 was given 1 dose of oral Seroquel. He apparently was somnolent and call most of the night. He remains somnolent this morning but it was arousable. IVF stopped. 03/29: Continues on Zosyn IV. White blood count 11.9. BNP normal. ALT to 14. AST 45. Physical therapy has been problematic as each time they have come his heart rate has been above 100 and they have deferred evaluation. His sputum culture is growing yeast so fluconazole will be added. Patient is frail, somewhat shaky. Somnolent, but arousable. Hard of hearing. Lungs have wheezing bilaterally. Heart is irregular without murmur. Abdomen is soft, non-tender No leg edema. Na 129 (117 on 03/25). Echo: The left ventricle is normal in size. Left ventricular ejection fraction is estimated to be 45 +/- 5%. There is mild global hypokinesis of the left ventricle. The right ventricle is mildly dilated. Right ventricular systolic function is borderline reduced. The right ventricular systolic pressure is estimated to be at least 57 mmHg based on an estimated right atrial pressure of 8 mm Hg. The left atrium is mildly dilated. The right atrium is moderately dilated. There is mild mitral regurgitation. There is moderate tricuspid regurgitation. The aortic root is normal size. The patient was in atrial fibrillation with heart rates between 82-144 bpm during the exam. Head CT: No acute intracranial pathology. Chest, abdomen, pelvis CT: 1. 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 2. Enlarged right retrocrural 4.4 cm node versus silvia conglomerate. 3. Left lower lobe 9 mm nodule, which is too small for percutaneous sampling but is suspicious for possible metastatic disease. 4. Multifocal ground-glass opacities throughout both lungs concerning for multifocal pneumonia. 5. Enlarged left pre-vascular and AP window nodes may be reactive in the setting of multifocal pneumonia. 6. Right moderate and small left pleural effusions. 7. No displaced rib fracture or pneumothorax. Cervical spine CT: No displaced fracture or traumatic subluxation. A/P: 1. Sepsis, improved. Patient presented with leukocytosis, hypotension, tachycardia, tachypnea, and evidence of multifocal pneumonia. Blood cultures negative for 72h. Continue Zosyn. White blood cell count is improved from 23.4-11.9. Normotensive today. 2. Multifocal pneumonia, active. May be secondary to aspiration versus poor baseline health/nutrition. Remains on Zosyn. Now requiring 1 L of oxygen. 3. Hyponatremia, resolved 4. New diagnosis of atrial fibrillation wtih RVR, active and stable. He was placed on dabigatran by his PCP. Given his alcohol dependence, falls prior to admission, and potential need for biopsy to ascertain the underlying malignancy, we have held his dabigatran. 5. Alcohol dependence with withdrawal, active. He is at risk for alcohol withdrawal. He denies any previous history of alcohol withdrawal symptoms. Continue alcohol withdrawal protocol 6. 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 Alpha fetoprotein was ordered on admission and is still pending. Dabigatran was held on admission. He reports that he would like to pursue diagnosis and would certainly pursue treatment if there is a malignancy. 7. Cirrhosis, active. CT scan does show evidence of likely cirrhosis of the liver. This would certainly put him at risk for HCC. 8. Metabolic encephalopathy, multifactorial but largely related to alcohol withdrawal. PLAN: -[facility] protocol -continue Zosyn and follow cultures -wean O2 as able -physical therapy -monitor mental status. -add fluconazole for yeast in sputum culture. -increase metoprolol to 100 mg b.i.d. (due to tachycardia.) He needs at least 1 more night of care in the hospital given alcohol withdrawal and ammonia. Disposition depends on PT/OT eval recommendations. Exam Vital Signs (past 8 hours): - 03/29/25 00:15 03/29/25 04:35 Temperature 97.0 F L 97.2 F L Pulse Rate 127 H 110 H Respiratory Rate 18 18 Blood Pressure 141/96 H 144/89 H Pulse Oximetry 95 98 Oxygen Flow Rate 2 2 Oxygen Delivery Method Nasal Cannula Oxygen Flow Rate 2 Objective Labs 03/29/25 05:35 03/29/25 05:35 Labs: Laboratory Results - last 24 hr 03/28/25 03/29/25 05:53 05:35 WBC 11.9 H RBC 4.22 L Hgb 12.8 L Hct 38.0 L MCV 90.1 MCH 30.4 MCHC 33.8 RDW 14.9 H Plt Count 343 Sodium 129 L 133 L Potassium 4.2 3.7 Chloride 104 103 Carbon Dioxide 17 L 20 L BUN 13 16 Creatinine 0.56 L 0.69 Estimated GFR > 60 > 60 BUN/Creatinine Ratio 23.2 H 23.2 H Glucose 101 H 87 Calcium 7.8 L 8.4 Total Bilirubin 1.0 1.0 AST 44 45 ALT 195 H 214 H Alkaline Phosphatase 81 83 Total Protein 5.2 L 6.4 Albumin 2.5 L 3.2 L Globulin 2.7 3.2 Albumin/Globulin Ratio 0.9 L 1.0 PFSH Social History household members: caregiver Smoking Status: Former smoker alcohol intake: current Assessment & Plan Time-Based Coding :: [TOTAL MINUTES] spent with patient and on the chart (including review of chart, obtaining history, exam, reviewing outside data, placing orders, documenting exam and treatment plan, and counseling patient) on [DATE]. Quality VTE Deep Vein Thrombosis/Pulmonary Embolism Present on Admission: No
[2025-03-29] MEDS: PANTOPRAZOLE DR 20 MG TABLET PO (08:57)
[2025-03-29] MEDS: FLUCONAZOLE 100 MG TABLET PO (08:57)
[2025-03-29] MEDS: MULTIVITAMIN 1 TABLET 1 TAB PO (08:57)
[2025-03-29] MEDS: ENOXAPARIN 40 MG/0.4 ML SYRINGE SUBCUT (08:58)
[2025-03-29] MEDS: METOPROLOL IR 25 MG TABLET 75 MG PO (08:58)
[2025-03-29] MEDS: SODIUM CHLORIDE 0.9% FLUSH 10 ML IV ×2 (09:14→20:15)
--- NOTE | 2025-03-29 12:48 | CM.DPC ---
DCP Cont. Reviewed EMR and team rounds for pt's medical status and updates. Per PT/OT/Hospitalist, pt will need SNF. Will send out referrals on .
--- NOTE | 2025-03-29 13:09 | PC.NURSE ---
pt sitting up in bed, watching tv, eating lunch, nad, talking full sentences, will continue to monitor, call light within reach.
--- NOTE | 2025-03-29 15:26 | PC.NURSE ---
pt sitting up in bed, watching tv, nad, call light within reach, will continue to monitor.
[2025-03-29] MEDS: ACETAMINOPHEN 325 MG TABLET 650 MG PO (20:15)
[2025-03-29] MEDS: METOPROLOL IR 25 MG TABLET 100 MG PO (20:15)
[2025-03-30 00:03] VITALS: O2SAT 93
[2025-03-30] MEDS: PIPERACILLIN/TAZO 3.375 GM in SODIUM CHLORIDE 0.9% 100 ML IV ×3 (03:11→20:04)
[2025-03-30 04:25] VITALS: BP 146/111; PULSE 119; RESP 18; TEMP 36.3; O2SAT 92
[2025-03-30 05:26] LABS: Hematocrit 39.1 % (41-53); Hemoglobin 13.0 g/dL (13.5-17.5); Mean Corpuscular HGB Conc 33.2 % (30-36); Mean Corpuscular Hemoglobin 29.8 PG (26-34); Mean Corpuscular Volume 89.6 fL (80-100); Platelet Count 366 X10^3/uL (150-400)
[2025-03-30 05:39] LABS: Alanine Aminotransferase 180 IU/L (<50); Albumin 3.3 g/dL (3.5-5.0); Albumin Globulin Ratio 1.0 (1.0-2.8); Alkaline Phosphatase 84 U/L (38-126); Blood Urea Nitrogen 19 mg/dL (9-20); Calcium 8.5 mg/dL (8.4-10.2); Carbon Dioxide 20 mmol/L (22-32); Chloride 103 mmol/L (98-107); Estimated Glomerular Filt Rate > 60 mL/min (>60); Globulin 3.3 g/dL (1.7-4.1); Glucose 104 mg/dL (70-99); HEMOLYSIS < 15 (0-50); Potassium 3.5 mmol/L (3.4-5.1); Sodium 132 mmol/L (137-145); Total Protein 6.6 g/dL (6.3-8.2)
[2025-03-30 08:00] VITALS: BP 145/83; PULSE 61; RESP 20; TEMP 36.8; O2SAT 94
--- NOTE | 2025-03-30 08:00 | P.PN_ITS ---
Subjective Subjective Date Patient Seen: 03/30/25 Interval history: 80-year-old male with chronic tobacco dependence greater than 40 pack years, alcohol dependence without history of alcohol withdrawal, chronic dizziness, hypertension who was admitted with sepsis, multifocal pneumonia, hyponatremia, recent new diagnosis of atrial fibrillation, probable cirrhosis, and new diagnosis of hepatic mass with possible enlarged right retrocrural lymph node 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 On admission he was hypotensive with a white blood cell count of 23.4. He was mildly coagulopathic with an INR of 1.5. Initial sodium was 117. Initial LFTs revealed a bilirubin of 1.7, AST of 61, ALT of 165. Procalcitonin was 5.6. He reported he would wish to pursue diagnosis of his liver mass and treatment. 03/28: He was getting quite agitated at the end of the day on March 27 was given 1 dose of oral Seroquel. He apparently was somnolent and call most of the night. He remains somnolent this morning but it was arousable. IVF stopped. 03/29: Continues on Zosyn IV. White blood count 11.9. BNP normal. ALT to 14. AST 45. Physical therapy has been problematic as each time they have come his heart rate has been above 100 and they have deferred evaluation. His sputum culture is growing yeast so fluconazole will be added. 03/30: He says that he feels stronger. He is more interactive today. His heart rate remains above 100 despite increasing the metoprolol dose yesterday. This has been limiting his access to PT and OT. The ALT has dropped to 180. The AST has dropped to 39. The sodium is 132 with a potassium of 3.5. Patient is frail, somewhat shaky. More interactive today. Hard of hearing. Lungs are clear bilaterally. Heart is regular rate and rhythm without murmur. Abdomen is soft, non-tender No leg edema. Na 129 (117 on 03/25). Echo: The left ventricle is normal in size. Left ventricular ejection fraction is estimated to be 45 +/- 5%. There is mild global hypokinesis of the left ventricle. The right ventricle is mildly dilated. Right ventricular systolic function is borderline reduced. The right ventricular systolic pressure is estimated to be at least 57 mmHg based on an estimated right atrial pressure of 8 mm Hg. The left atrium is mildly dilated. The right atrium is moderately dilated. There is mild mitral regurgitation. There is moderate tricuspid regurgitation. The aortic root is normal size. The patient was in atrial fibrillation with heart rates between 82-144 bpm during the exam. Head CT: No acute intracranial pathology. Chest, abdomen, pelvis CT: 1. 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 2. Enlarged right retrocrural 4.4 cm node versus silvia conglomerate. 3. Left lower lobe 9 mm nodule, which is too small for percutaneous sampling but is suspicious for possible metastatic disease. 4. Multifocal ground-glass opacities throughout both lungs concerning for multifocal pneumonia. 5. Enlarged left pre-vascular and AP window nodes may be reactive in the setting of multifocal pneumonia. 6. Right moderate and small left pleural effusions. 7. No displaced rib fracture or pneumothorax. Cervical spine CT: No displaced fracture or traumatic subluxation. A/P: 1. Sepsis, improved. Patient presented with leukocytosis, hypotension, tachycardia, tachypnea, and evidence of multifocal pneumonia. Blood cultures negative for 72h. Continue Zosyn. White blood cell count is improved from 23.4-11.9. 2. Multifocal pneumonia, active. May be secondary to aspiration versus poor baseline health/nutrition. Remains on Zosyn. Now requiring 1 L of oxygen. 3. Hyponatremia, resolved 4. New diagnosis of atrial fibrillation wtih RVR, active and stable. He was placed on dabigatran by his PCP. Given his alcohol dependence, falls prior to admission, and potential need for biopsy to ascertain the underlying malignancy, we have held his dabigatran. 5. Alcohol dependence with withdrawal, active. He is at risk for alcohol withdrawal. He denies any previous history of alcohol withdrawal symptoms. Continue alcohol withdrawal protocol 6. 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 Alpha fetoprotein was ordered on admission and is still pending. Dabigatran was held on admission. He reports that he would like to pursue diagnosis and would certainly pursue treatment if there is a malignancy. 7. Cirrhosis, active. CT scan does show evidence of likely cirrhosis of the liver. This would certainly put him at risk for HCC. 8. Metabolic encephalopathy, multifactorial but largely related to alcohol withdrawal. PLAN: -[facility] protocol -continue Zosyn and follow cultures -wean O2 as able -physical therapy and occupational therapy evaluations expected soon as his heart rate is coming down. -monitor mental status. -fluconazole for yeast in sputum culture. -increase metoprolol to 100 mg b.i.d. (due to tachycardia.) He needs at least 1 more night of care in the hospital given alcohol withdrawal and Pneumonia. Disposition depends on PT/OT eval recommendations. Exam Vital Signs (past 8 hours): - 03/30/25 00:03 03/30/25 04:25 Temperature 97.4 F L Pulse Rate 119 H Respiratory Rate 18 Blood Pressure 146/111 H Pulse Oximetry 93 92 Oxygen Delivery Method Nasal Cannula Oxygen Flow Rate 2 2 Fraction of Inspired Oxygen 28 Fraction of Inspired Oxygen 28 SaO2/FiO2 Ratio 332 Oxygen Delivery Method Nasal Cannula Oxygen Flow Rate 2 Objective Labs 03/30/25 05:03 03/30/25 05:03 Labs: Laboratory Results - last 24 hr 03/26/25 03/30/25 04:29 05:03 WBC 12.9 H RBC 4.37 L Hgb 13.0 L Hct 39.1 L MCV 89.6 MCH 29.8 MCHC 33.2 RDW 15.1 H Plt Count 366 Sodium 132 L Potassium 3.5 Chloride 103 Carbon Dioxide 20 L BUN 19 Creatinine 0.64 L Estimated GFR > 60 BUN/Creatinine Ratio 29.7 H Glucose 104 H Calcium 8.5 Total Bilirubin 0.8 AST 39 ALT 180 H Alkaline Phosphatase 84 Total Protein 6.6 Albumin 3.3 L Globulin 3.3 Albumin/Globulin Ratio 1.0 Alpha Fetoprotein Afp A [facility] Social History household members: caregiver Smoking Status: Former smoker alcohol intake: current Assessment & Plan Time-Based Coding :: [TOTAL MINUTES] spent with patient and on the chart (including review of chart, obtaining history, exam, reviewing outside data, placing orders, documenting exam and treatment plan, and counseling patient) on [DATE]. Quality VTE Deep Vein Thrombosis/Pulmonary Embolism Present on Admission: No
[2025-03-30] MEDS: FLUCONAZOLE 100 MG TABLET PO (09:37)
[2025-03-30] MEDS: PANTOPRAZOLE DR 20 MG TABLET PO (09:37)
[2025-03-30] MEDS: SODIUM CHLORIDE 0.9% FLUSH 10 ML IV ×2 (09:37→20:15)
[2025-03-30] MEDS: MULTIVITAMIN 1 TABLET 1 TAB PO (09:37)
[2025-03-30] MEDS: METOPROLOL IR 50 MG TABLET 100 MG PO ×2 (09:37→20:13)
[2025-03-30] MEDS: ENOXAPARIN 40 MG/0.4 ML SYRINGE SUBCUT (09:39)
[2025-03-30] MEDS: POTASSIUM CHLORIDE 20 MEQ TAB 40 MEQ PO (09:41)
[2025-03-30] MEDS: ACETAMINOPHEN 325 MG TABLET 650 MG PO (09:52)
--- NOTE | 2025-03-30 11:25 | DIET.PN1 ---
Dietary Progress Note Assessment: f/u Met with pt in room, is drinking Ensure at bedside and reports typically he has 4 Boost drinks daily and 1 meal. Reports somewhat of a decreased appetite last couple of days, but it is improved. Unsure about recent weight loss. Ht: 180.34 cm Wt: 68 kg BMI: 21.0 UBW: 142# per pt (64.5 kg) Last BM: 03/24/25 (03/25/25 18:16) MNA: 9 Eulogio Score: 16 Diet: 03/25/25 Dinner Heart Healthy Diet Diet Modifications: Nutrition Percent Meal Consumed 0% 03/28/25 18:00 Percent Meal Consumed 0% 03/28/25 15:01 Labs: RBC 4.37 X10^6/uL (4.5-5.9) L 03/30/25 05:03 Hgb 13.0 g/dL (13.5-17.5) L 03/30/25 05:03 Hct 39.1 % (41-53) L 03/30/25 05:03 Creatinine 0.64 mg/dL (0.66-1.25) L 03/30/25 05:03 Lactate 1.7 mmol/L (0.7-2.1) 03/25/25 16:46 Nutrition Diagnosis: Increased energy needs r/t alterations in GI tract related organs aeb cirrhosis Interventions: Encouraged the higher kcal/higher protein Boost drinks (boost +/boost high protein) Sending up Ensure TID EER: 2050 kcals (30 kcals/kg per BMI) 80-95 g protein (1.2-1.4 g/kg per cirrhosis) Monitoring/Evaluations: PO intakes Electronically Signed by: Windy Varghese 03/30/25 11:25 Clinical Dietitian [address] [id number]
[2025-03-30 16:00] VITALS: BP 142/92; PULSE 93; RESP 22; TEMP 36.6; O2SAT 95
[2025-03-30 20:00] VITALS: BP 134/98; PULSE 128; RESP 22; TEMP 36.5; O2SAT 96
[2025-03-31] VITALS (10 sets, daily range): BP systolic 130–155; BP diastolic 72–98; PULSE 97–148; RESP 17–22; TEMP 36.1–37.3; O2SAT 93–97
--- NOTE | 2025-03-31 | DI.CT.S_ITS ---
PROCEDURE: CT ABDOMEN LIVER PROTOCOL INDICATIONS: Hepatocellular Carcinoma TECHNIQUE: 4 phase scanning was performed. Non-contrast 5 mm axial sections acquired from the diaphragm to the iliac crests. Following the administration of intravenous contrast, 5 mm thick arterial-phase, portal venous-phase, and 5-minute delayed phase images were acquired through the liver. 5 mm thick coronal and sagittal reformats were performed. For radiation dose reduction, the following was used: automated exposure control, adjustment of mA and/or kV according to patient size. COMPARISON: [facility], CT, CT CHEST ABD PEL W CON, 03/25/2025, 13:46. FINDINGS: Image quality: Good. The arterial phase of contrast is too early. Lower chest: Moderate bilateral pleural effusions. Appears increased on the left. Bibasilar consolidations has the appearance of compressive atelectasis. Additional scattered opacity at the lung bases is again seen. Right retrocrural node or mass measuring 2.3 cm, (6/32). Coronary artery calcifications. Please see recently dictated CT chest, abdomen and pelvis. ABDOMEN: Liver: Right posterior liver segment 7/6 partially exophytic lesion measuring 8.5 x 5.6 cm, (6/38). In the coronal plane this measures 7.6 cm. Suspected arterial hyperenhancement based off of prior exam. No definite washout. Lesion demonstrates heterogeneous enhancement. There is an area of increased density on the noncontrast series. No internal calcification or fat density is seen. Inferior portion has a pseudo capsule. There is occlusive thrombus in the right portal vein branch emanating from the lesion, (6/44). Patchy enhancement near or within the portal vein thrombus. Concerning for tumor in vein. LR-5 lesion. No additional lesions identified. Gallbladder: Small layering gallstones. Not dilated. Question trace pericholecystic fluid. Biliary ducts: No biliary dilation. Pancreas: No ductal dilation. Spleen: Size is within normal limits. Measures 10.2 cm in length. Adrenal Glands: No adrenal nodules. Kidneys and Ureters: No hydronephrosis. Densities at the renal pyramids on the noncontrast series. Medullary nephrocalcinosis. Unlikely retained contrast from recent CT. No solid mass. No complex renal cystic lesion which requires follow up. No filling defect in the opacified portions of the upper ureters. Stomach and Bowel: Stomach is not distended. No small bowel obstruction. Peritoneum: Trace ascites suspected at the right pericolic gutter. No pneumoperitoneum. Ventral Wall: No hernia. Body wall edema most pronounced at the lower flank/lower back. Abdominal Nodes: Small periportal lymph node. Low suspicion. However right retrocrural node and nodes in the chest are suspicious. Vessels: No abdominal aortic aneurysm. Dense calcified atherosclerotic plaque. Conventional and patent hepatic arterial anatomy. Atherosclerotic disease in the mesenteric arteries. SMA is patent. SMILEY is patent. IVC appears patent. Reflux of contrast into the intrahepatic IVC. This could be seen in diastolic cardiac dysfunction. Thrombus in the right posterior branch of the portal vein extending to the bifurcation. The hepatic veins appear patent. No definite recannulization of the periumbilical vein. Bones: No aggressive osseous abnormality. Multilevel DDD. IMPRESSION: 1. Right posterior partially exophytic liver lesion measuring approximately 8.5 cm. LR 5-TIV. 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 2. Right retrocrural node measuring 2.3 cm. Suspect metastatic disease. Additional suspected metastatic disease in the chest on recent CT CAP. 3. Moderate bilateral pleural effusions. Body wall edema. No significant volume ascites. 4. Gallstones. Suspected medullary nephrocalcinosis which could represent medullary sponge renal disease. Dictated by: Ken Love M.D. on 03/31/2025 at 12:54 Approved by: Ken Love M.D. on 03/31/2025 at 13:27
[2025-03-31] MEDS: PIPERACILLIN/TAZO 3.375 GM in SODIUM CHLORIDE 0.9% 100 ML IV ×3 (03:24→20:54)
[2025-03-31 06:28] LABS: Blood Urea Nitrogen 18 mg/dL (9-20); Calcium 9.0 mg/dL (8.4-10.2); Carbon Dioxide 23 mmol/L (22-32); Chloride 105 mmol/L (98-107); Estimated Glomerular Filt Rate > 60 mL/min (>60); Glucose 117 mg/dL (70-99); HEMOLYSIS < 15 (0-50); Potassium 4.1 mmol/L (3.4-5.1); Sodium 135 mmol/L (137-145)
[2025-03-31] MEDS: SODIUM CHLORIDE 0.9% FLUSH 10 ML IV ×2 (08:00→21:00)
[2025-03-31] MEDS: MULTIVITAMIN 1 TABLET 1 TAB PO (08:00)
[2025-03-31] MEDS: METOPROLOL IR 50 MG TABLET 100 MG PO ×2 (08:00→20:55)
[2025-03-31] MEDS: FLUCONAZOLE 100 MG TABLET PO (08:00)
[2025-03-31] MEDS: PANTOPRAZOLE DR 20 MG TABLET PO (08:00)
[2025-03-31] MEDS: ENOXAPARIN 40 MG/0.4 ML SYRINGE SUBCUT (08:14)
--- NOTE | 2025-03-31 08:15 | PM.PN.1 ---
Subjective Subjective Date Patient Seen: 03/31/25 Interval history: 80-year-old male with chronic tobacco dependence greater than 40 pack years, alcohol dependence without history of alcohol withdrawal, chronic dizziness, hypertension who was admitted with sepsis, multifocal pneumonia, hyponatremia, recent new diagnosis of atrial fibrillation, probable cirrhosis, and new diagnosis of hepatic mass with possible enlarged right retrocrural lymph node 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 On admission he was hypotensive with a white blood cell count of 23.4. He was mildly coagulopathic with an INR of 1.5. Initial sodium was 117. Initial LFTs revealed a bilirubin of 1.7, AST of 61, ALT of 165. Procalcitonin was 5.6. He reported he would wish to pursue diagnosis of his liver mass and treatment. 03/28: He was getting quite agitated at the end of the day on March 27 was given 1 dose of oral Seroquel. He apparently was somnolent and call most of the night. He remains somnolent this morning but it was arousable. IVF stopped. 03/29: Continues on Zosyn IV. White blood count 11.9. BNP normal. ALT to 14. AST 45. Physical therapy has been problematic as each time they have come his heart rate has been above 100 and they have deferred evaluation. His sputum culture is growing yeast so fluconazole will be added. 03/30: He says that he feels stronger. He is more interactive today. His heart rate remains above 100 despite increasing the metoprolol dose yesterday. This has been limiting his access to PT and OT. The ALT has dropped to 180. The AST has dropped to 39. The sodium is 132 with a potassium of 3.5. 03/31: His BMP is normal today. He is more interactive and engaged on planning. His POA is requesting that his liver biopsy be done while he is still hospitalized. We discussed that that is unlikely to be able to be arranged. She also says that his 3 flights of stairs up to his apartment should not be a problem as he ?never leaves the apartment any way ?. Apparently caregivers that she manages bring everything to him so returning to his apartment before further rehab, continuing on oxygen if needed, should not be a problem. He told PT/OT that he does go up and down the stairs but that someone could carry him this time when he goes home. Patient is frail, somewhat shaky. More interactive today. Hard of hearing. Lungs are clear bilaterally. Heart is regular rate and rhythm without murmur. Abdomen is soft, non-tender No leg edema. Clear urine in Williamson catheter. Na 129 (117 on 03/25). Echo: The left ventricle is normal in size. Left ventricular ejection fraction is estimated to be 45 +/- 5%. There is mild global hypokinesis of the left ventricle. The right ventricle is mildly dilated. Right ventricular systolic function is borderline reduced. The right ventricular systolic pressure is estimated to be at least 57 mmHg based on an estimated right atrial pressure of 8 mm Hg. The left atrium is mildly dilated. The right atrium is moderately dilated. There is mild mitral regurgitation. There is moderate tricuspid regurgitation. The aortic root is normal size. The patient was in atrial fibrillation with heart rates between 82-144 bpm during the exam. Head CT: No acute intracranial pathology. Chest, abdomen, pelvis CT: 1. 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 2. Enlarged right retrocrural 4.4 cm node versus silvia conglomerate. 3. Left lower lobe 9 mm nodule, which is too small for percutaneous sampling but is suspicious for possible metastatic disease. 4. Multifocal ground-glass opacities throughout both lungs concerning for multifocal pneumonia. 5. Enlarged left pre-vascular and AP window nodes may be reactive in the setting of multifocal pneumonia. 6. Right moderate and small left pleural effusions. 7. No displaced rib fracture or pneumothorax. Cervical spine CT: No displaced fracture or traumatic subluxation. A/P: 1. Sepsis, improved. Patient presented with leukocytosis, hypotension, tachycardia, tachypnea, and evidence of multifocal pneumonia. Blood cultures negative for 72h. Continue Zosyn until 04/01. White blood cell count is improved from 23.4-11.9. 2. Multifocal pneumonia, active. May be secondary to aspiration versus poor baseline health/nutrition. Remains on Zosyn, completing 7 day course 04/01. Now requiring 1 L of oxygen. 3. Hyponatremia, resolved 4. New diagnosis of atrial fibrillation wtih RVR, active and stable. He was placed on dabigatran by his PCP. Given his alcohol dependence, falls prior to admission, and potential need for biopsy to ascertain the underlying malignancy, we have held his dabigatran. 5. Alcohol dependence with withdrawal, active. He is at risk for alcohol withdrawal. He denies any previous history of alcohol withdrawal symptoms. Continue alcohol withdrawal protocol 6. 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 Alpha fetoprotein 180,507, which is consistent with HCC. Dabigatran was held on admission. He reports that he would like to pursue diagnosis and would certainly pursue treatment if there is a malignancy. Caregiver requested that radiology do the biopsy while inpatient. That isn't routinely done but we will investigate. 7. Cirrhosis, active. CT scan does show evidence of likely cirrhosis of the liver. This would certainly put him at risk for HCC. 8. Metabolic encephalopathy, multifactorial but largely related to alcohol withdrawal. PLAN: -[facility] protocol completed -complete 7 days Zosyn course on 04/01. -wean O2 as able, home O2 assessment planned for 04/01 -physical therapy and occupational therapy evaluations so far recommending custodial facility due to 3 flights of stairs. Caregiver says everything is delivered to him so being carried up 3 flights of stairs and then staying there should not be a problem. -fluconazole for yeast in sputum culture. -increased metoprolol to 100 mg b.i.d. (due to tachycardia.) -confirm with Radiology whether inpatient liver biopsy is possible. He needs at least 1 more night of care in the hospital to complete pneumonia treatment and assess for home O2/discharge planning. Disposition per PT/OT would be custodial facility. Caregiver/POA prefers that he return home despite the 3 flights of stairs. He would be carried up the stairs and everything would be delivered to him. Exam Vital Signs (past 8 hours): - 03/31/25 03:47 03/31/25 05:00 Temperature 99.1 F Pulse Rate 97 H Respiratory Rate 18 Blood Pressure 135/88 Pulse Oximetry 93 94 Oxygen Delivery Method Nasal Cannula Oxygen Flow Rate 2 2 Fraction of Inspired Oxygen 28 Fraction of Inspired Oxygen 28 SaO2/FiO2 Ratio 332 Oxygen Delivery Method Nasal Cannula Oxygen Flow Rate 2 Objective Labs 03/30/25 05:03 03/31/25 05:40 Labs: Laboratory Results - last 24 hr 03/31/25 05:40 Sodium 135 L Potassium 4.1 Chloride 105 Carbon Dioxide 23 BUN 18 Creatinine 0.66 Estimated GFR > 60 BUN/Creatinine Ratio 27.3 H Glucose 117 H Calcium 9.0 PFSH Social History household members: caregiver Smoking Status: Former smoker alcohol intake: current Assessment & Plan Time-Based Coding :: [TOTAL MINUTES] spent with patient and on the chart (including review of chart, obtaining history, exam, reviewing outside data, placing orders, documenting exam and treatment plan, and counseling patient) on [DATE]. Quality VTE Deep Vein Thrombosis/Pulmonary Embolism Present on Admission: No
--- NOTE | 2025-03-31 09:27 | DIET.PN1 ---
Dietary Progress Note Assessment: F/u Continued low PO intakes of 25%. Adjusted Ensure to Ensure+ for increased kcals/protein to meet energy needs. Ht: 180.34 cm Wt: 68 kg BMI: 21.0 UBW: Last BM: 03/24/25 (03/25/25 18:16) MNA: 9 Eulogio Score: 15 Diet: 03/25/25 Dinner Heart Healthy Diet Diet Modifications: Nutrition Percent Meal Consumed 25% 03/30/25 18:00 Percent Meal Consumed 25% 03/30/25 12:00 Percent Meal Consumed 25% 03/30/25 08:00 Labs: RBC 4.37 X10^6/uL (4.5-5.9) L 03/30/25 05:03 Hgb 13.0 g/dL (13.5-17.5) L 03/30/25 05:03 Hct 39.1 % (41-53) L 03/30/25 05:03 Creatinine 0.66 mg/dL (0.66-1.25) 03/31/25 05:40 Lactate 1.7 mmol/L (0.7-2.1) 03/25/25 16:46 Electronically Signed by: Windy Varghese 03/31/25 09:[address] [id number]
--- NOTE | 2025-03-31 10:35 | OT.IP.EVAL ---
Current Diagnoses Sepsis, unspecified organism (03/25/25) Occupational Therapy Inpatient Evaluation/Re-Eval M1 OT IP Prior Functional Status Start: 03/31/25 09:33 Freq: Status: Active Protocol: Document 03/31/25 09:34 [facility] (Rec: 03/31/25 09:45 [facility] [id number]) Medical Review Prior Functional Status Communication I but soft spoken Mobility and Gait Pt states prior did not use any devices for needs. Activities of Daily Completely independent for ADL needs and assist for Living and IADL's IADl needs. Prior Functional Pt states has a caregivers that assists him daily but Level (Other details hours vary. ) Social History Household Members caregiver Living Arrangements Apartment/Condo Number of Stairs To 3 flight of steps with right rail. Enter/Railing? Home Environment Standard Height Toilet,Walk in Shower Home Equipment Grab Bars In Shower M2 OT-IP Current Condition Start: 03/31/25 09:33 Freq: Status: Active Protocol: Document 03/31/25 09:34 [facility] (Rec: 03/31/25 09:45 [facility] [id number]) Occupational Therapy Current Condition Current Condition Evaluation Date 03/31/25 Treatment Diagnosis Sepsis, PNA, A-fib Diagnosis Onset Date 03/25/25 M3 OT- IP Subjective and Pain Start: 03/31/25 09:33 Freq: Status: Active Protocol: Document 03/31/25 09:34 [facility] (Rec: 03/31/25 09:45 [facility] [id number]) OT- Subjective Occupational Therapy Visit Type Type Initial Evaluation Visit Start Time 09:00 Visit Stop Time 09:30 Occupational Therapy Visit Comments Patient Comments Pt agreed to get up. Patient/Caregiver TO go home. Goals OT Pain Assessment Location Buttock Pain Behaviors Facial Grimacing M4 OT- IP ADL's Start: 03/31/25 09:33 Freq: Status: Active Protocol: Document 03/31/25 09:34 [facility] (Rec: 03/31/25 09:45 [facility] [id number]) OT [id number]-[id number] Comments OT Self-Feeding Pt noted eggs in his mouth and needing cues to clear Comments his mouth by means of drinking water. Pt coughing a lot as well. Pt would benefit from FILLING OPERATOR eval. OT ADL-Dressing General Eval Lower Body Dressing Moderate Assistance Ability Comments OT Dressing Comments Assist to doff brief over his feet as soiled. OT ADL-Toileting Comments OT Toileting Williamson per nursing to be taken out soon. Nursing aid Comments present to assist pt for completeness of hygiene needs . OT ADL-Bathing Comments OT Bathing Comments Pt will benefit form a shower chair at home. M5 OT- IP IADL's Start: 03/31/25 09:33 Freq: Status: Active Protocol: Document 03/31/25 09:34 [facility] (Rec: 03/31/25 09:45 [facility] [id number]) OT-Instrumental Activities of Daily Living Home Safety Awareness Awareness of Need Good Awareness for Assistance at Home Ability to Problem Able to Problem Solve Solve Emergency Situations Meal Preparation Meal Preparation Caregiver Provides Assist Lead Generator Lead Generator Caregiver Provides Assist M6 OT- IP Functional Cognition Start: 03/31/25 09:33 Freq: Status: Active Protocol: Document 03/31/25:34 [facility] (Rec: 03/31/25 09:45 [facility] [id number]) Cognitive Factors Limiting Selfcare Function Cognitive Ability Level of Alertness Alert Patient Orientation Name,Age,Birthday,Month,Date,Year,Day of Week,Place, Situation Attention Span Capable of Focused Attention,Capable of Sustained Ability Attention Ability to Follow Able to Follow One Step Commands Commands Cognitive Comments Cognitive Assessment Pt very soft spoken and able to follow directions for Comments ADL and mobility needs. OT- Vision and Hearing OT- Hearing Assessment OT- Hearing Hearing Impaired Assessment OT- Vision Assessment Visual Acuity WFL Visual Attentiveness WFL Occular Pursuits WFL M7 OT- IP Mobility and Balance Start: 03/31/25 09:33 Freq: Status: Active Protocol: Document 03/31/25:34 [facility] (Rec: 03/31/25 09:45 [facility] [id number]) OT- Bed Mobility Assessment Supine to Sit Supine to Sit Assist Standby Assistance OT-Transfer Assessment Sit to and From Stand Sit to and from Contact Guard Assistance Stand Transfers Transfer Ability Contact Guard Assistance Technique Transfer Destination Bed,Chair,Toilet Transfer Technique Stand Step Pivot Devices Transfer Assistive Gait Belt,Front Wheeled Walker Devices Comments Mobility Comments CGA to stand and O2 on 2L drops to 88% and needing a few deep breaths to increase to 93%. Pt CGA with FWW to get into the bathroom and pt is very SOB. Nursing aid able to take over for toileting needs. OT- Balance Assessment Sitting Balance and Reactions Static Sitting Normal Balance Ability Dynamic Sitting Good Balance Ability Standing Balance and Reactions Static Standing Good Balance Ability Dynamic Standing Fair Balance Ability M8 OT- IP Objective Assessments Start: 03/31/25 09:33 Freq: Status: Active Protocol: Document 03/31/25 09:34 [facility] (Rec: 03/31/25 09:45 [facility] [id number]) OT Gross Range of Motion Upper Extremity Range of Motion Assessment Within Functional Limits OT Strength Upper Extremity Strength Assessment Within Functional Limits OT- Coordination Assessment Upper Extremity Finger to Nose Test Within Functional Limits M9 OT- IP Assessment and Plan Start: 03/31/25 09:33 Freq: Status: Active Protocol: Document 03/31/25 09:34 [facility] (Rec: 03/31/25 09:45 [facility] [id number]) OT Summary Assessment and Plan Potential Rehabilitation Excellent Potential Analytic Complexity Moderate at Evaluation Summary OT Impairments Pain,Balance,Functional Mobility,Grooming,Dressing, Toileting,Bathing,Toilet Transfers,Shower Transfers, Activity Tolerance Progress Towards Progressing Toward Goals,Slow Progress due to Medical Goals Issues,Slow Progress due to Activity Tolerance Assessment Summary Pt MOD complexity and main barriers are 3 flight of steps and currently having to use a FWW and on 2L of O2 . Prior pt was independent with no devices or O2. Pt will benefit from skilled rehab prior to going home. Pt insistent that his caregivers can just carry him up the steps. If pt is able to safely get up to his condo, he would benefit from home health services. Goals Self-Feeding Goal Independent Grooming Goal Independent Dressing Goal Independent Toileting Goal Independent Toilet Transfer Goal Independent Shower Transfer Goal Independent OT-Other Goals Goals without a device. Days to Meet Goals 15 Frequency of Treatment Other frequency 5x/week Treatment Plan OT Treatment Plan ADL Training,Functional Mobility,Patient/Family Education,Discharge Planning Other Treatment Standing ADL's Recommendations and Next Treatment Focus Discharge Recommendations OT Discharge SNF Rehab Recommendations Transportation Needs Wheelchair/Cabulance at Discharge
[2025-03-31 11:55] LABS: Prostate Specific Antigen 6.46 ng/mL (0.10-4.00)
--- NOTE | 2025-03-31 13:12 | CM.DPC ---
DCP Cont. Reviewed EMR and team rounds for pt's medical status and updates. Pt's d/c plan is now home. Check in w/pt on Sat. re: if he would like Home Health services at d/c. Monitoring.
--- NOTE | 2025-03-31 18:35 | PC.NURSE ---
Patient adult care manager Maria Victoria Merari [phone] is requesting call on 04/01 from [facility] re: sobriety resources for pt as well as discussing whether or not HH or home O2 is necessary.
[2025-03-31] MEDS: ACETAMINOPHEN 325 MG TABLET 650 MG PO (20:55)
[2025-04-01 03:00] VITALS: BP 128/76; PULSE 95; RESP 18; TEMP 36.8; O2SAT 97
[2025-04-01] MEDS: PIPERACILLIN/TAZO 3.375 GM in SODIUM CHLORIDE 0.9% 100 ML IV ×2 (03:01→11:26)
--- NOTE | 2025-04-01 05:09 | PC.NURSE ---
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 Patient for evening shift was urinal independant and was able to void 175mL and was bladder scanned post void and had less than 200mL in bladder after void. Patient voided 90 minutes later and was scanned again for post void residual and had less than 200mL. (scans are in red folder jacket) personal lines sales repMASON malik.
[2025-04-01 08:00] VITALS: BP 131/77; PULSE 119; RESP 16; TEMP 36.8; O2SAT 97
[2025-04-01] MEDS: MULTIVITAMIN 1 TABLET 1 TAB PO (09:26)
[2025-04-01] MEDS: FLUCONAZOLE 100 MG TABLET PO (09:27)
[2025-04-01] MEDS: PANTOPRAZOLE DR 20 MG TABLET PO (09:27)
[2025-04-01] MEDS: SODIUM CHLORIDE 0.9% FLUSH 10 ML IV ×2 (09:27→20:57)
[2025-04-01] MEDS: METOPROLOL IR 50 MG TABLET 100 MG PO ×2 (09:27→20:57)
[2025-04-01] MEDS: SODIUM CHLORIDE 0.9% 250 ML 21 ML IV (11:47)
[2025-04-01 11:50] VITALS: BP 135/100; PULSE 98; RESP 24; TEMP 36.7; O2SAT 96
--- NOTE | 2025-04-01 11:52 | PM.PN.IH.1 ---
Subjective Subjective Date Patient Seen: 04/01/25 Time Patient Seen: 08:03 Interval history: 80-year-old male with chronic tobacco dependence greater than 40 pack years, alcohol dependence without history of alcohol withdrawal, chronic dizziness, hypertension who was admitted with sepsis, multifocal pneumonia, hyponatremia, recent new diagnosis of atrial fibrillation, probable cirrhosis, and new diagnosis of hepatic mass with possible enlarged right retrocrural lymph node 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 On admission he was hypotensive with a white blood cell count of 23.4. He was mildly coagulopathic with an INR of 1.5. Initial sodium was 117. Initial LFTs revealed a bilirubin of 1.7, AST of 61, ALT of 165. Procalcitonin was 5.6. He reported he would wish to pursue diagnosis of his liver mass and treatment. 03/28: He was getting quite agitated at the end of the day on March 27 was given 1 dose of oral Seroquel. He apparently was somnolent and call most of the night. He remains somnolent this morning but it was arousable. IVF stopped. 03/29: Continues on Zosyn IV. White blood count 11.9. BNP normal. ALT to 14. AST 45. Physical therapy has been problematic as each time they have come his heart rate has been above 100 and they have deferred evaluation. His sputum culture is growing yeast so fluconazole will be added. 03/30: He says that he feels stronger. He is more interactive today. His heart rate remains above 100 despite increasing the metoprolol dose yesterday. This has been limiting his access to PT and OT. The ALT has dropped to 180. The AST has dropped to 39. The sodium is 132 with a potassium of 3.5. 03/31: His BMP is normal today. He is more interactive and engaged on planning. His POA is requesting that his liver biopsy be done while he is still hospitalized. We discussed that that is unlikely to be able to be arranged. She also says that his 3 flights of stairs up to his apartment should not be a problem as he ?never leaves the apartment any way ?. Apparently caregivers that she manages bring everything to him so returning to his apartment before further rehab, continuing on oxygen if needed, should not be a problem. He told PT/OT that he does go up and down the stairs but that someone could carry him this time when he goes home. 04/01: He states he is feeling better, though remains weak. He denies pain. He is looking forward to returning home. His caregiver is arranging extra help tomorrow get him up to his apartment. Exam Patient is frail, somewhat shaky. More interactive today. Hard of hearing. Lungs are clear bilaterally. Heart is regular rate and rhythm without murmur. Abdomen is soft, non-tender No leg edema. Clear urine in Williamson catheter. Imaging: Echo: The left ventricle is normal in size. Left ventricular ejection fraction is estimated to be 45 +/- 5%. There is mild global hypokinesis of the left ventricle. The right ventricle is mildly dilated. Right ventricular systolic function is borderline reduced. The right ventricular systolic pressure is estimated to be at least 57 mmHg based on an estimated right atrial pressure of 8 mm Hg. The left atrium is mildly dilated. The right atrium is moderately dilated. There is mild mitral regurgitation. There is moderate tricuspid regurgitation. The aortic root is normal size. The patient was in atrial fibrillation with heart rates between 82-144 bpm during the exam. Head CT: No acute intracranial pathology. Chest, abdomen, pelvis CT: 1. 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 2. Enlarged right retrocrural 4.4 cm node versus silvia conglomerate. 3. Left lower lobe 9 mm nodule, which is too small for percutaneous sampling but is suspicious for possible metastatic disease. 4. Multifocal ground-glass opacities throughout both lungs concerning for multifocal pneumonia. 5. Enlarged left pre-vascular and AP window nodes may be reactive in the setting of multifocal pneumonia. 6. Right moderate and small left pleural effusions. 7. No displaced rib fracture or pneumothorax. Cervical spine CT: No displaced fracture or traumatic subluxation. A/P: 1. Sepsis, resolved. Patient presented with leukocytosis, hypotension, tachycardia, tachypnea, and evidence of multifocal pneumonia. Blood cultures negative for 72h. Continue Zosyn until 04/01. White blood cell count is improved from 23.4-11.9. 2. Multifocal pneumonia, active. May be secondary to aspiration versus poor baseline health/nutrition. Remains on Zosyn, completing 7 day course 04/01. Now requiring 1 L of oxygen. 3. Hyponatremia, resolved 4. New diagnosis of atrial fibrillation wtih RVR, active and stable. He was placed on dabigatran by his PCP. Given his alcohol dependence, falls prior to admission, and potential need for biopsy to ascertain the underlying malignancy, we have held his dabigatran. 5. Alcohol dependence with withdrawal, active. He is at risk for alcohol withdrawal. He denies any previous history of alcohol withdrawal symptoms. Continue alcohol withdrawal protocol 6. Hepatocellular carcinoma presenting with a hepatic mass with possible enlarged right retrocrural lymph node versus silvia conglomerate and left lower lobe 9 mm nodule possibly representing metastatic disease on CT imaging. Alpha fetoprotein 180,507, which is consistent with HCC. He will need outpatient Oncology consultation. He is considering hospice. 7. Cirrhosis, active. CT scan does show evidence of likely cirrhosis of the liver. This would certainly put him at risk for HCC. 8. Metabolic encephalopathy, multifactorial but largely related to alcohol withdrawal. PLAN: -CIWA protocol completed -complete 7 days Zosyn course on 04/01. Discontinue Zosyn today. -wean O2 as able, home O2 assessment planned for 04/01 -physical therapy and occupational therapy evaluations so far recommending senior care facility due to 3 flights of stairs. Caregiver says everything is delivered to him so being carried up 3 flights of stairs and then staying there should not be a problem. -fluconazole for yeast in sputum culture. -increased metoprolol to 100 mg b.i.d. (due to tachycardia.), now rate control -confirm with Radiology whether inpatient liver biopsy is possible. Disposition per PT/OT would be senior care facility. Caregiver/POA prefers that he return home despite the 3 flights of stairs. He would be carried up the stairs and everything would be delivered to him. Exam Vital Signs (past 8 hours): - 04/01/25 08:00 Temperature 98.2 F Pulse Rate 119 H Respiratory Rate 16 Blood Pressure 131/77 Pulse Oximetry 97 Oxygen Flow Rate 0 Fraction of Inspired Oxygen 28 SaO2/FiO2 Ratio 332 Oxygen Delivery Method Nasal Cannula Oxygen Flow Rate 0 Objective Labs 03/30/25 05:03 03/31/25 05:40 Labs: Laboratory Results - last 24 hr 03/31/25 05:40 Prostate Specific Ag 6.46 H PFSH Social History household members: caregiver Smoking Status: Former smoker alcohol intake: current Assessment & Plan Time-Based Coding :: [TOTAL MINUTES] spent with patient and on the chart (including review of chart, obtaining history, exam, reviewing outside data, placing orders, documenting exam and treatment plan, and counseling patient) on [DATE]. Quality VTE Deep Vein Thrombosis/Pulmonary Embolism Present on Admission: No IH PROFEE Electroless Plater Document charge(s): No
--- NOTE | 2025-04-01 11:56 | PT.IPTN ---
Current Diagnoses Sepsis, unspecified organism (03/25/25) Physical Therapy Treatment Note M3 PT-IP Subjective Start: 03/31/25 11:38 Freq: NEEDED Status: Active Protocol: Document 04/01/25 11:47 [facility] (Rec: 04/01/25 11:56 [facility] [id number]) Subjective Physical Therapy Visit Type Type Treatment Note Visit Start Time 11:20 Visit Stop Time 11:45 Physical Therapy Visit Comments Patient Comments pt agrees to PT, he does c/o abdominal pain with cough Therapy Pain Assessment Pain When Pain Assessed During Mobility Pain Present Pain Present Pain Reported M4 PT-IP Mobility and Gait Start: 03/31/25 11:38 Freq: NEEDED Status: Active Protocol: Document 04/01/25 11:47 [facility] (Rec: 04/01/25 11:56 [facility] [id number]) PT-Bed Mobility Assessment Supine to Sit Supine to Sit Contact Guard Assistance Scooting Scooting to Edge of Contact Guard Assistance Bed PT-Transfer Assessment Sit to and From Stand Sit to and from Contact Guard Assistance Stand Equipment Transfer Assistive Front Wheeled Walker Device Transfers Transfer Destination Chair Transfer Ability Level of Assist Contact Guard Assistance Comments Mobility Comments pt was mouth breathing heavily and experiencing abdominal pain both sit sitting and with standing with transfers. on 2 L 02. O2 sats 93 PT-Balance Assessment Sitting Balance and Reactions Static Sitting Normal Balance Ability Dynamic Sitting Good Balance Ability Standing Balance and Reactions Static Standing Good Balance Ability Dynamic Standing Fair Balance Ability M5 PT-IP Objective Assessments Start: 03/31/25 11:38 Freq: NEEDED Status: Active Protocol: Document 03/31/25 11:39 [facility] (Rec: 03/31/25 11:50 [facility] [id number]) Orientation Orientation/Cognition Level of Alertness Alert Language Function Hard of Hearing Ability M6 PT-IP Treatment Start: 03/31/25 11:38 Freq: NEEDED Status: Active Protocol: Document 04/01/25 11:47 [facility] (Rec: 04/01/25 11:56 [facility] [id number]) Physical Therapy Treatment Exercises Exercises Ankle Pumps,Heel Slides Other Treatments Other Treatment Encouraged deep breathing and breathing through nasal Performed cannula. On O2 2L, able to maintain O2 sats in the 90s, although dropping to low 90s with bed mobility. M7 PT-IP Assessment and Plan Start: 03/31/25 11:38 Freq: NEEDED Status: Active Protocol: Document 04/01/25 11:47 [facility] (Rec: 04/01/25 11:56 [facility] [id number]) PT Summary Assessment and Plan Summary Progress Towards Slow Progress - Other Goals Assessment Summary pt was SOB today and c/o soreness in abdomen. He was breathing heavily through his mouth and his tolerance was low for activity. Once seated in bed side chair he did seem more comfortable. Stairs were not attempted with this treatment and pt will need SNF present. He stated his caregiver works during the day and he will need 24 hour care Goals Bed Mobility Goal Independent Transfer Goal Independent Gait Goal Independent,Standby Assistance Gait Distance 50 Other Goals Ascend/descend full flight of stairs w/CGA Days to Meet Goals 5 Frequency of Treatment Frequency Of Once a Day Treatment Treatment Plan Physical Therapy Gait Training,Therapeutic Exercise Treatment Plan Other Start working on stairs Recommendations and Next Treatment Focus Recommendations To Nursing Amount of Assist 1 Person Assist Needed Discharge Recommendations PT Discharge SNF Rehab Recommendations Other Discharge Pt lives on third floor condo, walk up , pt reports 38 Recommendations stairs Transportation Needs Wheelchair/Cabulance at Discharge
--- NOTE | 2025-04-01 12:36 | CM.DPC ---
CM spoke with patient's POAMaria Victoria. Maria Victoria now requesting SNF for rehab. Patient profile sent to [facility]. Per September with , they should have an update Thursday on male bed availability. [facility] response pending.
[2025-04-01 15:44] VITALS: BP 143/81; PULSE 88; RESP 16; TEMP 36.4; O2SAT 96
--- NOTE | 2025-04-01 16:41 | DI.RAD.S_ITS ---
PROCEDURE: XR CHEST 1V INDICATIONS: increased work of breathing, shortness of breath TECHNIQUE: One view of the chest was acquired. COMPARISON: [facility], CR, XR CHEST 1V, 03/28/2025, 16:13. FINDINGS: Surgical changes and devices: None. Lungs and pleura: Abnormal interstitial prominence can be seen. There is a small right-sided pleural effusion. Mediastinum: Mediastinal contours appear normal. Heart size is mildly enlarged. Bones and chest wall: No suspicious bony lesions. Age-appropriate bony degenerative changes are seen. Overlying soft tissues appear unremarkable. IMPRESSION: Cardiomegaly with continued interstitial prominence and a right-sided pleural effusion. Continued CHF is suspected. Dictated by: Júnior Mallory M.D. on 04/01/2025 at 16:58 Approved by: Júnior Mallory M.D. on 04/01/2025 at 16:59
--- NOTE | 2025-04-01 17:03 | PC.NURSE ---
Patient called and states he is only able to speak in short sentences, increased work of breathing noted. O2 is at 97% on 2L, RR approx 24, patient reports he feels like he can't get any oxygen. Assisted more upright into bed and MD notified. CXR ordered and completed.
[2025-04-01] MEDS: SODIUM CHLORIDE 0.9% 1,000 ML 250 ML IV (18:14)
[2025-04-01] MEDS: levoFLOXacin 500 MG/100 ML PIGGYBACK 100 MG IV (18:17)
[2025-04-01 20:00] VITALS: BP 128/79; PULSE 106; RESP 33; TEMP 37.1; O2SAT 98
[2025-04-01] MEDS: ACETAMINOPHEN 325 MG TABLET 650 MG PO (20:57)
[2025-04-02] VITALS (9 sets, daily range): BP systolic 117–135; BP diastolic 71–99; PULSE 98–140; RESP 16–32; TEMP 36.3–36.7; O2SAT 93–98
[2025-04-02] MEDS: SODIUM CHLORIDE 0.9% 1,000 ML 100 ML IV (03:34)
[2025-04-02 04:55] LABS: Add Manual Diff / Slide Review NO; Hematocrit 42.3 % (41-53); Hemoglobin 13.8 g/dL (13.5-17.5); Lymphocytes Absolute Auto 1300 /uL (1100-4500); Mean Corpuscular HGB Conc 32.7 % (30-36); Mean Corpuscular Hemoglobin 30.0 PG (26-34); Mean Corpuscular Volume 91.8 fL (80-100); Platelet Count 402 X10^3/uL (150-400)
[2025-04-02 05:04] LABS: Alanine Aminotransferase 179 IU/L (<50); Albumin 3.8 g/dL (3.5-5.0); Albumin Globulin Ratio 1.0 (1.0-2.8); Alkaline Phosphatase 101 U/L (38-126); Blood Urea Nitrogen 21 mg/dL (9-20); Calcium 8.9 mg/dL (8.4-10.2); Carbon Dioxide 19 mmol/L (22-32); Chloride 108 mmol/L (98-107); Estimated Glomerular Filt Rate > 60 mL/min (>60); Globulin 3.8 g/dL (1.7-4.1); Glucose 185 mg/dL (70-99); HEMOLYSIS < 15 (0-50); Potassium 4.8 mmol/L (3.4-5.1); Sodium 139 mmol/L (137-145); Total Protein 7.6 g/dL (6.3-8.2)
[2025-04-02] MEDS: VANCOMYCIN 1,250 MG/250 ML PIGGYBACK 250 MG IV (06:26)
[2025-04-02] MEDS: FUROSEMIDE 40 MG/4 ML VIAL IV (08:53)
--- NOTE | 2025-04-02 10:32 | P.PN_ITS ---
Subjective Subjective Date Patient Seen: 04/02/25 Time Patient Seen: 08:20 Interval history: 80-year-old male with chronic tobacco dependence greater than 40 pack years, alcohol dependence without history of alcohol withdrawal, chronic dizziness, hypertension who was admitted with sepsis, multifocal pneumonia, hyponatremia, recent new diagnosis of atrial fibrillation, probable cirrhosis, and new diagnosis of hepatic mass with possible enlarged right retrocrural lymph node 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 On admission he was hypotensive with a white blood cell count of 23.4. He was mildly coagulopathic with an INR of 1.5. Initial sodium was 117. Initial LFTs revealed a bilirubin of 1.7, AST of 61, ALT of 165. Procalcitonin was 5.6. He reported he would wish to pursue diagnosis of his liver mass and treatment. 03/28: He was getting quite agitated at the end of the day on March 27 was given 1 dose of oral Seroquel. He apparently was somnolent and call most of the night. He remains somnolent this morning but it was arousable. IVF stopped. 03/29: Continues on Zosyn IV. White blood count 11.9. BNP normal. ALT to 14. AST 45. Physical therapy has been problematic as each time they have come his heart rate has been above 100 and they have deferred evaluation. His sputum culture is growing yeast so fluconazole will be added. 03/30: He says that he feels stronger. He is more interactive today. His heart rate remains above 100 despite increasing the metoprolol dose yesterday. This has been limiting his access to PT and OT. The ALT has dropped to 180. The AST has dropped to 39. The sodium is 132 with a potassium of 3.5. 03/31: His BMP is normal today. He is more interactive and engaged on planning. His POA is requesting that his liver biopsy be done while he is still hospitalized. We discussed that that is unlikely to be able to be arranged. She also says that his 3 flights of stairs up to his apartment should not be a problem as he ?never leaves the apartment any way ?. Apparently caregivers that she manages bring everything to him so returning to his apartment before further rehab, continuing on oxygen if needed, should not be a problem. He told PT/OT that he does go up and down the stairs but that someone could carry him this time when he goes home. 04/01: He states he is feeling better, though remains weak. He denies pain. He is looking forward to returning home. His caregiver is arranging extra help tomorrow get him up to his apartment. 04/02: The patient continues to feel short of breath, and progressively weak. He dry mucous membranes and was administered fluids overnight, though developed increased respiratory effort overnight and gurgling breath sounds. IV fluids were stopped this morning and he is given IV furosemide 40 mg. He denies chest pain. He states that this has not helped him feel any better. 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 Also reviewed with his guardian Maria Victoria by phone. A comfort based approach is advised in the patient states that he is in agreement with this care plan, including palliative measures, hospice approach and DNR status. Exam Patient is frail, cachectic, with labored breathing. He has alert, appropriate and oriented. Hard of hearing. Lungs coarse bilateral breath sounds bilaterally. Heart is regular rate and rhythm without murmur. Abdomen is soft, non-tender No leg edema. Clear urine in Williamson catheter. Imaging: Echo: The left ventricle is normal in size. Left ventricular ejection fraction is estimated to be 45 +/- 5%. There is mild global hypokinesis of the left ventricle. The right ventricle is mildly dilated. Right ventricular systolic function is borderline reduced. The right ventricular systolic pressure is estimated to be at least 57 mmHg based on an estimated right atrial pressure of 8 mm Hg. The left atrium is mildly dilated. The right atrium is moderately dilated. There is mild mitral regurgitation. There is moderate tricuspid regurgitation. The aortic root is normal size. The patient was in atrial fibrillation with heart rates between 82-144 bpm during the exam. Head CT: No acute intracranial pathology. Chest, abdomen, pelvis CT: 1. 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 2. Enlarged right retrocrural 4.4 cm node versus silvia conglomerate. 3. Left lower lobe 9 mm nodule, which is too small for percutaneous sampling but is suspicious for possible metastatic disease. 4. Multifocal ground-glass opacities throughout both lungs concerning for multifocal pneumonia. 5. Enlarged left pre-vascular and AP window nodes may be reactive in the setting of multifocal pneumonia. 6. Right moderate and small left pleural effusions. 7. No displaced rib fracture or pneumothorax. Cervical spine CT: No displaced fracture or traumatic subluxation. A/P: 1. Sepsis, resolved. Patient presented with leukocytosis, hypotension, tachycardia, tachypnea, and evidence of multifocal pneumonia. Blood cultures negative for 72h. Continue Zosyn until 04/01. White blood cell count is improved from 23.4-11.9. 2. Multifocal pneumonia, active. May be secondary to aspiration versus poor baseline health/nutrition, but suspect underlying lymphangitic spread of hepatocellular carcinoma. 3. Hyponatremia, resolved 4. New diagnosis of atrial fibrillation wtih RVR, active and stable. He was placed on dabigatran by his PCP. Given his alcohol dependence, falls prior to admission, and potential need for biopsy to ascertain the underlying malignancy, we have held his dabigatran. 5. Alcohol dependence with withdrawal, active. No evidence of alcohol withdrawal at this point. He denies any previous history of alcohol withdrawal symptoms. 6. Hepatocellular carcinoma presenting with a hepatic mass with possible enlarged right retrocrural lymph node versus silvia conglomerate and left lower lobe 9 mm nodule possibly representing metastatic disease on CT imaging. Alpha fetoprotein 180,507, which is consistent with HCC. As detailed above plan is for hospice level care at this point. The patient appears very frail and weak and approaching terminal phase, and may pass within the next 72 hours. 7. Cirrhosis, active. CT scan does show evidence of likely cirrhosis of the liver. This would certainly put him at risk for HCC. 8. Metabolic encephalopathy, multifactorial but largely related to alcohol withdrawal. PLAN: -stop antibiotics -stopped fluids -comfort care measures -titrate oxygen to comfort -IV/SL lorazepam, IV morphine as needed -DNR/DNI Disposition: Care was reviewed with the patient's guardian and RANI Gage, who agrees with this plan of care. Exam Vital Signs (past 8 hours): - 04/02/25 03:00 04/02/25 04:00 04/02/25 04:30 Temperature 97.6 F Pulse Rate 140 H Respiratory Rate 32 H Blood Pressure 135/99 H Pulse Oximetry 93 97 96 Oxygen Flow Rate 7 6 5 04/02/25 08:00 Temperature 98.0 F Pulse Rate 110 H Respiratory Rate 16 Blood Pressure 132/88 Pulse Oximetry 98 Oxygen Flow Rate 3 Fraction of Inspired Oxygen 28 SaO2/FiO2 Ratio 332 Oxygen Delivery Method Nasal Cannula Oxygen Flow Rate 3 Objective Labs 04/02/25 04:30 04/02/25 04:30 Labs: Laboratory Results - last 24 hr 04/02/25 04:30 WBC 15.6 H RBC 4.60 Hgb 13.8 Hct 42.3 MCV 91.8 MCH 30.0 MCHC 32.7 RDW 15.7 H Plt Count 402 H Neut % (Auto) 83.9 H Lymph % (Auto) 8.6 L Pike % (Auto) 6.1 Eos % (Auto) 0.7 L Baso % (Auto) 0.7 Neut # (Auto) 29969 H Lymph # (Auto) 1300 Pike # (Auto) 1000 H Eos # (Auto) 100 Baso # (Auto) 100 Sodium 139 Potassium 4.8 Chloride 108 H Carbon Dioxide 19 L BUN 21 H Creatinine 0.84 Estimated GFR > 60 BUN/Creatinine Ratio 25.0 H Glucose 185 H Calcium 8.9 Total Bilirubin 0.6 AST 50 ALT 179 H Alkaline Phosphatase 101 Total Protein 7.6 Albumin 3.8 Globulin 3.8 Albumin/Globulin Ratio 1.0 PFSH Social History household members: caregiver Smoking Status: Former smoker alcohol intake: current Quality VTE Deep Vein Thrombosis/Pulmonary Embolism Present on Admission: No IH PROFEE Cellulose Insulation Helper Document charge(s): No Charge Codes Subsequent inpatient/observation care: 49924
--- NOTE | 2025-04-02 10:48 | CM.DPC ---
DCP Comfort Measures SW followed up on the previous referrals sent to [facility] (will know their bed availability in the AM) and left vm and email for Vivi at [facility] to determine if they can accept pt for SNF rehab. [facility] has male beds but no referral sent yet. PASRR completed in anticipation of SNF. Per MD, pt not improving and had lengthy discussion with pt and also his POShantal Irene this morning and decision to switch pt to Comfort Measures and changed to DNR and MD anticipates pt likely imminent to in the next 72 hours. Plan: SW to follow closely in the AM to determine if back up plan needed of home with Hospice if pt stabilizes vs here pending pt's progress. SANTA Quinn
[2025-04-02] MEDS: MORPHINE 2 MG/ML INJ 1 MG IV (11:18)
--- NOTE | 2025-04-02 13:08 | PT-IP ANOTE ---
Pt has been transitioned to comfort care. Discharging from PT services at this time.
[2025-04-02] MEDS: DOCUSATE 100 MG CAPSULE PO (21:16)
[2025-04-02] MEDS: FLEETS ENEMA 1 EACH PR (21:17)
[2025-04-02] MEDS: SODIUM CHLORIDE 0.9% FLUSH 10 ML IV (21:17)
[2025-04-03 02:30] VITALS: O2SAT 97
--- NOTE | 2025-04-03 05:36 | P.PN_ITS ---
Subjective Subjective Interval history: A&P 80-year-old male with chronic tobacco dependence greater than 40 pack years, alcohol dependence without history of alcohol withdrawal, chronic dizziness, hypertension who was admitted with sepsis, multifocal pneumonia, hyponatremia, recent new diagnosis of atrial fibrillation, probable cirrhosis, and new diagnosis of hepatic mass with possible enlarged right retrocrural lymph node 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 Alpha-fetoprotein is over 180,000, consistent with HCC. The plan at this time is for hospice level/comfort care. * Comfort care orders for symptomatic * No further diagnostics * Care management to work on long-term care for hospice/comfort as currently unclear how quickly the patient may decline. Code Status: DNR Diet: General Lines/Tubes: PIV, Williamson DVT Prophylaxis: None, comfort care Discharge Planning: Patient to remain here on comfort care for several days. LTC after that if appropriate. Chief Complaint: Patient not verbally interactive at this time. Subjective: Patient unable to participate in review of Objective Somnolent, not verbally interactive, thin ill-appearing NCAT, OP dry RRR, nl S1 and S2, no murmurs Bibasilar rales, otherwise clear to auscultation Soft, NT, ND, +BS Warm without edema Patient unable to participate in neuro exam Pleasant, cooperative Labs: No new labs as patient is on comfort care Imaging: No new imaging as patient is on comfort care Time: 35 minutes spent with patient and on the chart (including review of chart, obtaining history, exam, reviewing outside data, placing orders, documenting exam and treatment plan, and counseling patient). Exam Vital Signs (past 8 hours): - 04/03/25 02:30 Pulse Oximetry 97 Oxygen Delivery Method Nasal Cannula Oxygen Flow Rate 2.5 Fraction of Inspired Oxygen 30 Fraction of Inspired Oxygen 30 SaO2/FiO2 Ratio 323 Oxygen Delivery Method Nasal Cannula Oxygen Flow Rate 2.5 Objective Labs 04/02/25 04:30 04/02/25 04:30 [facility] Social History household members: caregiver Smoking Status: Former smoker alcohol intake: current Assessment & Plan Time-Based Coding :: [TOTAL MINUTES] spent with patient and on the chart (including review of chart, obtaining history, exam, reviewing outside data, placing orders, documenting exam and treatment plan, and counseling patient) on [DATE]. Quality VTE Deep Vein Thrombosis/Pulmonary Embolism Present on Admission: No
--- NOTE | 2025-04-03 08:43 | OT.IPNOTE ---
Pt's chart reviewed. Pt was transitioned to comfort care on 04/02/25. D/C OT services at this time.
[2025-04-03 08:53] VITALS: BP 125/83; PULSE 93; RESP 16; TEMP 37.2; O2SAT 98
--- NOTE | 2025-04-03 09:05 | DIET.PN1 ---
Dietary Progress Note Assessment: Per EMR review, pt switched to comfort measures. D/c dietitian f/u. Ht: 180.34 cm Wt: 68 kg BMI: 21.0 Last BM: 03/24/25 (03/25/25 18:16) MNA: 9 Eulogio Score: 15 Diet: 03/25/25 Dinner Heart Healthy Diet Diet Modifications: Nutrition Percent Meal Consumed 0% 04/02/25 13:02 Percent Meal Consumed 10 04/01/25 18:47 Percent Meal Consumed 0% 04/01/25 13:00 Labs: RBC 4.60 X10^6/uL (4.5-5.9) 04/02/25 04:30 Hgb 13.8 g/dL (13.5-17.5) 04/02/25 04:30 Hct 42.3 % (41-53) 04/02/25 04:30 Creatinine 0.84 mg/dL (0.66-1.25) 04/02/25 04:30 Lactate 1.7 mmol/L (0.7-2.1) 03/25/25 16:46 Electronically Signed by: Windy Varghese 04/03/25 09:05 Clinical [address] [id number]
[2025-04-03] MEDS: MORPHINE 2 MG/ML INJ 1 MG IV ×4 (10:16→23:16)
[2025-04-03] MEDS: PANTOPRAZOLE DR 20 MG TABLET PO (10:16)
[2025-04-03] MEDS: DOCUSATE 100 MG CAPSULE PO ×2 (10:16→20:22)
[2025-04-03] MEDS: SODIUM CHLORIDE 0.9% FLUSH 10 ML IV ×2 (10:16→20:22)
[2025-04-03] MEDS: FLEETS ENEMA 1 EACH PR (11:32)
--- NOTE | 2025-04-03 11:37 | SLP.IPNOTE ---
Chart reviewed. RN consulted. Given that the patient is currently on comfort care, the speech-language pathologist plans to discontinue speech therapy orders at this time. A new referral is recommended should the patient?s status or goals of care change.
[2025-04-03 21:00] VITALS: O2SAT 94
[2025-04-04] MEDS: MORPHINE 2 MG/ML INJ 1 MG IV ×4 (02:19→12:22)
[2025-04-04] MEDS: LORazepam 2 MG/ML ORAL SOL 1 MG PO ×2 (04:03→09:47)
[2025-04-04] MEDS: SODIUM CHLORIDE 0.9% FLUSH 10 ML IV ×2 (09:30→19:50)
--- NOTE | 2025-04-04 11:16 | P.PN_ITS ---
Subjective Subjective Interval history: A&P 80-year-old male with chronic tobacco dependence greater than 40 pack years, alcohol dependence without history of alcohol withdrawal, chronic dizziness, hypertension who was admitted with sepsis, multifocal pneumonia, hyponatremia, recent new diagnosis of atrial fibrillation, probable cirrhosis, and new diagnosis of hepatic mass with possible enlarged right retrocrural lymph node 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 Alpha-fetoprotein is over 180,000, consistent with HCC. The plan at this time is for hospice level/comfort care. * Comfort care orders for symptomatic management * Patient was more agitated during the night and there is concern for suboptimal pain control. Discussed in multidisciplinary rounds today and will initiate a low-dose fentanyl patch. This can be titrated as needed for improved pain control. * No further diagnostics * Care management working on long-term care placement for hospice/comfort care. Code Status: DNR Diet: General Lines/Tubes: PIV, Williamson DVT Prophylaxis: None, comfort care Discharge Planning: Patient is stable for discharge to long-term care for hospice level management. Chief Complaint: No complaints at this time Subjective: Patient with limited interaction. Answers no to pain or shortness of breath. Otherwise nonverbal. Objective Somnolent, minimal verbal interaction, thin ill-appearing NCAT, OP dry RRR, nl S1 and S2, no murmurs Bibasilar rales, otherwise clear to auscultation Soft, NT, ND, +BS Warm without edema Patient unable to participate in neuro exam Pleasant, cooperative Labs: No new labs as patient is on comfort care Imaging: No new imaging as patient is on comfort care Time: 25 minutes spent with patient and on the chart (including review of chart, obtaining history, exam, reviewing outside data, placing orders, documenting exam and treatment plan, and counseling patient). Exam Vital Signs (past 8 hours): Fraction of Inspired Oxygen 30 SaO2/FiO2 Ratio 323 Oxygen Delivery Method Oximask Oxygen Flow Rate 2 Objective Labs 04/02/25 04:30 04/02/25 04:30 [facility] Social History household members: caregiver Smoking Status: Former smoker alcohol intake: current Assessment & Plan Time-Based Coding :: [TOTAL MINUTES] spent with patient and on the chart (including review of chart, obtaining history, exam, reviewing outside data, placing orders, documenting exam and treatment plan, and counseling patient) on [DATE]. Quality VTE Deep Vein Thrombosis/Pulmonary Embolism Present on Admission: No
[2025-04-04] MEDS: fentaNYL 12 MCG/PATCH TOP (12:06)
[2025-04-04] MEDS: MORPHINE 2 MG/ML INJ IV ×7 (13:10→22:37)
--- NOTE | 2025-04-04 17:26 | CM.DPNOTE ---
[facility] DCP Continued: Reviewed EMR and team rounds for pt?s medical status. Per hospitalist, pt on comfort care but not imminent - would benefit from transfer to SNF or [facility] with Hospice services. PUBLIC DEFENDER spoke with pt POA, Maria Victoria Gage, ph#[phone]. Discussed at length of discharge plans for patient, she would like to have a goals of care conversation with Hospitalist today as she was told on 04/02 that patient was imminent and likely to in hospital. PUBLIC DEFENDER discussed assessment of hospitalist today and that discharge planning will continue for pt comfort. PUBLIC DEFENDER provided emotional support to pt POA/caregiver with reflective listening. POA reports that she can get pt admitted at [facility] in [place] as soon as Thursday, 04/11 and is still attempting to get pt in sooner; she verbalized understanding that pt is medically clear to dc to lower level of care on Hospice. PUBLIC DEFENDER sent referral to [facility] per POA request via fax. PUBLIC DEFENDER reviewed above with POA and hospitalist, they verbalized understanding. Plan: Anticipating Hospice at [facility] when able to be accepted, earliest will be 04/11. Likely BLS transport. CM Team will continue to follow for coordination of discharge plans. GEORGINA Kim
[2025-04-04 20:00] VITALS: BP 148/123; PULSE 138; RESP 18; TEMP 36.9; O2SAT 80
[2025-04-04] MEDS: SCOPOLAMINE 1 PATCH TOP (21:00)
[2025-04-05] MEDS: MORPHINE 2 MG/ML INJ IV ×5 (00:10→15:42)
[2025-04-05] MEDS: SODIUM CHLORIDE 0.9% FLUSH 10 ML IV ×2 (08:01→20:03)
--- NOTE | 2025-04-05 14:35 | P.PN_ITS ---
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 On admission he was hypotensive with a white blood cell count of 23.4. He was mildly coagulopathic with an INR of 1.5. Initial sodium was 117. Initial LFTs revealed a bilirubin of 1.7, AST of 61, ALT of 165. Procalcitonin was 5.6. He reported he would wish to pursue diagnosis of his liver mass and treatment. Hospital course: 03/26-03/28: He was getting quite agitated at the end of the day on March 27 was given 1 dose of oral Seroquel. He apparently was somnolent and call most of the night. He remains somnolent this morning but it was arousable. IVF stopped. 03/29: Continues on Zosyn IV. White blood count 11.9. BNP normal. ALT to 14. AST 45. Physical therapy has been problematic as each time they have come his heart rate has been above 100 and they have deferred evaluation. His sputum culture is growing yeast so fluconazole will be added. 03/30: He says that he feels stronger. He is more interactive today. His heart rate remains above 100 despite increasing the metoprolol dose yesterday. This has been limiting his access to PT and OT. The ALT has dropped to 180. The AST has dropped to 39. The sodium is 132 with a potassium of 3.5. 03/31: His BMP is normal today. He is more interactive and engaged on planning. His POA is requesting that his liver biopsy be done while he is still hospitalized. We discussed that that is unlikely to be able to be arranged. She also says that his 3 flights of stairs up to his apartment should not be a problem as he ?never leaves the apartment any way ?. Apparently caregivers that she manages bring everything to him so returning to his apartment before further rehab, continuing on oxygen if needed, should not be a problem. He told PT/OT that he does go up and down the stairs but that someone could carry him this time when he goes home. 04/01: He states he is feeling better, though remains weak. He denies pain. He is looking forward to returning home. His caregiver is arranging extra help tomorrow get him up to his apartment. 04/02: The patient continues to feel short of breath, and progressively weak. He dry mucous membranes and was administered fluids overnight, though developed increased respiratory effort overnight and gurgling breath sounds. IV fluids were stopped this morning and he is given IV furosemide 40 mg. He denies chest pain. He states that this has not helped him feel any better. 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 Also reviewed with his guardian Maria Victoria by phone. A comfort based approach is advised in the patient states that he is in agreement with this care plan, including palliative measures, hospice approach and DNR status. 04/03-04/05: Increasing levels of pain palliative fentanyl patch was placed with adjustment of dose along with this is of IV morphine greater than 22 mg over 24 hours Review of systems: Patient is not cognitively able to communicate Physical exam: Chronically ill premorbid elderly male confused agitated appears uncomfortable Assessment and plan: * Patient had end of life * Morphine infusion starting at 5 milligrams/hour Disposition: * Morphine infusion to ease the patient's end of survival Time based billing: * 35 minutes were involved in the evaluation of this patient including [id number] evaluation discussion with patient's power of banking attorney who is in agreement Exam Vital Signs (past 8 hours): Fraction of Inspired Oxygen 30 SaO2/FiO2 Ratio 323 Oxygen Delivery Method Room Air,Nasal Cannula Oxygen Flow Rate 2 Objective Labs 04/02/25 04:30 04/02/25 04:30 [facility] Social History household members: caregiver Smoking Status: Former smoker alcohol intake: current Assessment & Plan Time-Based Coding :: [TOTAL MINUTES] spent with patient and on the chart (including review of chart, obtaining history, exam, reviewing outside data, placing orders, documenting exam and treatment plan, and counseling patient) on [DATE]. Quality VTE Deep Vein Thrombosis/Pulmonary Embolism Present on Admission: No
[2025-04-05] MEDS: SCOPOLAMINE 1 PATCH TOP (14:45)
[2025-04-05 20:00] VITALS: BP 98/65; PULSE 70; RESP 17; TEMP 36.1; O2SAT 71
--- NOTE | 2025-04-06 00:48 | PC.NURSE ---
Patient comfort care. Morphine drip initiated today. Upon initial assessment patient appears comfortable. Respiration easy, no grimacing or restless movements noted. At 2119 patient found to be having episodes of moaning and appearing uncomfortable. Morphine drip rate increased to 7 mg/hr. Patient settled. At 2304 patient found to have passed. No respirations noted or heart beat on auscultation. Confirmed with [address] Gimenez made aware via [employer]. POA called and made aware. [employer] called and made aware per POA directions. Post mortem care completed. 2 fentanyl patches removed from chest and wasted in cactus.
--- NOTE | 2025-04-06 08:05 | P.DN_ITS ---
Discharge Summary History of Illness Narrative: Cause of : * Overwhelming Carcinomatosis unknown primary discovered 11 days prior to passing Date of : * 04/05/2025 Time of : * 2304 Nurse's note: * Jet Galan Male : 1945 [facility]# [id number] * 04/06/25 00:48 - Nurse Note by Juli Fregoso RN * [facility] Num: [id number] : 1945 Patient Age: 80 * Patient comfort care. Morphine drip initiated today. Upon initial assessment patient appears comfortable. Respiration easy, no grimacing or restless movements noted. At 2119 patient found to be having episodes of moaning and appearing uncomfortable. Morphine drip rate increased to 7 mg/hr. Patient settled. At 2304 patient found to have passed. No respirations noted or heart beat on auscultation. Confirmed with [address] Gimenez made aware via [email or web address]. POA called and made aware. [employer] called and made aware per POA directions. Post mortem care completed. 2 fentanyl patches removed from chest and wasted in cactus. 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 On admission he was hypotensive with a white blood cell count of 23.4. He was mildly coagulopathic with an INR of 1.5. Initial sodium was 117. Initial LFTs revealed a bilirubin of 1.7, AST of 61, ALT of 165. Procalcitonin was 5.6. He reported he would wish to pursue diagnosis of his liver mass and treatment. Hospital course: 03/26-03/28: He was getting quite agitated at the end of the day on March 27 was given 1 dose of oral Seroquel. He apparently was somnolent and call most of the night. He remains somnolent this morning but it was arousable. IVF stopped. 03/29: Continues on Zosyn IV. White blood count 11.9. BNP normal. ALT to 14. AST 45. Physical therapy has been problematic as each time they have come his heart rate has been above 100 and they have deferred evaluation. His sputum culture is growing yeast so fluconazole will be added. 03/30: He says that he feels stronger. He is more interactive today. His heart rate remains above 100 despite increasing the metoprolol dose yesterday. This has been limiting his access to PT and OT. The ALT has dropped to 180. The AST has dropped to 39. The sodium is 132 with a potassium of 3.5. 03/31: His BMP is normal today. He is more interactive and engaged on planning. His POA is requesting that his liver biopsy be done while he is still hospitalized. We discussed that that is unlikely to be able to be arranged. She also says that his 3 flights of stairs up to his apartment should not be a problem as he ?never leaves the apartment any way ?. Apparently caregivers that she manages bring everything to him so returning to his apartment before further rehab, continuing on oxygen if needed, should not be a problem. He told PT/OT that he does go up and down the stairs but that someone could carry him this time when he goes home. 04/01: He states he is feeling better, though remains weak. He denies pain. He is looking forward to returning home. His caregiver is arranging extra help tomorrow get him up to his apartment. 04/02: The patient continues to feel short of breath, and progressively weak. He dry mucous membranes and was administered fluids overnight, though developed increased respiratory effort overnight and gurgling breath sounds. IV fluids were stopped this morning and he is given IV furosemide 40 mg. He denies chest pain. He states that this has not helped him feel any better. 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 Also reviewed with his guardian Maria Victoria by phone. A comfort based approach is advised in the patient states that he is in agreement with this care plan, including palliative measures, hospice approach and DNR status. 04/03-04/05: Increasing levels of pain palliative fentanyl patch was placed with adjustment of dose along with this is of IV morphine greater than 22 mg over 24 hours this was converted to morphine infusion by consensus decision of his medical decision maker. Patient passed later that day at 11:05 p.m. Time based billing: * 35 minutes were involved in the evaluation of this patient including [id number] evaluation discussion with patient's power of attorney lawyer who is in agreement Hospital Course Date of Admission: 03/25/25 16:35 Date of : 04/05/25 Primary care provider: Darius Grullon MD Consults: 03/25/25 16:28 Consult to Discharge Planning Routine Comment: Consult to Occupational Therapy Evaluate & Treat Comment: Physician Instructions: Evaluate and treat Consult to Physical Therapy Evaluate & Treat Comment: Physician Instructions: Evaluate and Treat 03/30/25 15:38 Consult to Occupational Therapy Evaluate & Treat Comment: Physician Instructions: Evaluate and treat Consult to Physical Therapy Evaluate & Treat Comment: Physician Instructions: Evaluate and Treat 04/02/25 09:48 Consult to Discharge Planning Routine Comment: 04/05/25 15:09 Consult to Discharge Planning Routine Comment: Objective Labs 04/02/25 04:30 04/02/25 04:30
== END 2025-04-05 23:05 | disposition expired | DRG 871 ==
LOC: ED 14:26 → AC 16:36
PROVIDERS: Family Medicine; Hospitalist; Internal Medicine; Admitting Provider Family Medicine; Emergency Provider Emergency Medicine; PCP Family Medicine; Referring Provider Emergency Medicine; Visit Provider Family Medicine
DX: A41.9 Sepsis, unspecified organism (principal); G93.41 Metabolic encephalopathy; J18.9 Pneumonia, unspecified organism; E87.1 Hypo-osmolality and hyponatremia; F10.239 Alcohol dependence with withdrawal, unspecified; C22.0 Liver cell carcinoma; C78.02 Secondary malignant neoplasm of left lung; I48.91 Unspecified atrial fibrillation; K74.60 Unspecified cirrhosis of liver; R91.1 Solitary pulmonary nodule; Z66 Do not resuscitate; R62.7 Adult failure to thrive; R09.02 Hypoxemia; Z79.01 Long term (current) use of anticoagulants; Z87.891 Personal history of nicotine dependence; Z51.5 Encounter for palliative care
CPT/HCPCS: 36415; 70450; 71045; 71260; 72125; 74170; 74177; 80048; 80053; 80202; 81001; 82105; 83605; 83690; 83735; 84145; 84153; 85025; 85027; 85610; 85730; 87040; 87070; 87077; 87205; 93005; 93010; 93306; 94760; 96361; 96365; 97161; 97166; 97530; 99284; 99291; J1160; J1650; J1938; J1956; J2060; J2270; J2543; J3375; J7030; J7050; Q9967